=== PATIENT | male | born 1985 | race American Indian/Alaskan Native ===

== ENCOUNTER 2016-08-29 09:31 | Day surgery (SDC) | payer MEDICAID ==
[2016-08-24 10:12] VITALS: BMI 26.1
[2016-08-29 10:18] VITALS: O2SAT 100
[2016-08-29] MEDS ORDERED: Midazolam 2 MG/2 ML VIAL ONE (11:47)
[2016-08-29] MEDS ORDERED: Propofol 10 mg/ml Inj (20 ML) ONE (11:47)
[2016-08-29] MEDS ORDERED: Bacitracin 500 Units/gm Oint Foilpak UD ONE (11:52)
[2016-08-29] MEDS ORDERED: ceFAZolin IV 1 gm in Dextrose 50 ML IVPB ONE (11:52)
[2016-08-29] MEDS ORDERED: Lidocaine 1% Inj (20ml) ONE (11:52)
[2016-08-29] MEDS ORDERED: Bupivacaine HCl 0.5% PF (10 ml) Inj ONE (11:52)
[2016-08-29] MEDS ORDERED: Lactated Ringer's 1,000 ML IV ONE ×2 (12:00→14:00)
--- NOTE | 2016-08-29 12:50 | PCM.SURG1 ---
Surgeon's Initial Post Op Note - Surgeon's Notes Surgeon: Jessica Concrete Rod Buster: sunita Type of Anesthesia: General LMA Anesthesia Administered By: staff Pre-Operative Diagnosis: phimosis Operative Findings: same Post-Operative Diagnosis: same Operation Performed: circumcison Specimen/Specimens Removed: foreskin Estimated Blood Loss: EBL {In ML}: 0 Blood Products Given: N/A Drains Used: No Drains Post-Op Condition: Good Date of Surgery/Procedure: 08/29/16 Time of Surgery/Procedure: 12:50
[2016-08-29] MEDS ORDERED: HYDROmorphone 0.5 mg/0.5 ml ISec IVP PRN (13:02)
[2016-08-29 13:27] VITALS: RESP 14
[2016-08-29 15:14] VITALS: TEMP 98
[2016-08-29 15:17] VITALS: BP 132/76; PULSE 68
--- NOTE | 2016-09-19 16:51 | OP ---
PROCEDURE DATE: 08/29/2016 PREOPERATIVE DIAGNOSIS: Phimosis. POSTOPERATIVE DIAGNOSIS: Phimosis. PROCEDURE: Circumcision. PROCEDURE IN DETAIL: As follows: Prior to the procedure, a detailed informed consent was obtained f rom the patient. The other ways of managing phimosis with balanitis were discussed with the patient. He was brought into the room and draped and prepped in the usual manner. A timeout was taken accor ding to the rules and regulations of [facility] and the circumcision begun by first marking the exterior and interior of the foreskin in the location of the incisions, which were both approximately 1 cm proximal to the sulcus coronaries. The two incisions were then connected with blunt and sharp dissection in a sleeve technique. Once the foreskin had been amputated, the cut areas were inspected for bleeding and bleeding vessels were fulgurated with the Bovie using a pinpoint electrode. The pa tient tolerated this well. The cut edges were then approximated with 3-0 chromic suture in a discont inuous fashion using a U stitch to reconstitute the frenulum. The patient tolerated this very well. There was no bleeding. The base of the penis was then infiltrated with 0.5% Marcaine Xylocaine solu tion and the dry sterile dressing was placed on the penis. The patient was given detailed postoperat odette instructions and a followup appointment in our office in one week. Theodore Lopez MD cc: [phone] TT: 09/19/2016 16:51:20
== END 2016-08-29 15:15 | disposition home or self-care (01) ==
LOC: C.SDS 09:31
PROVIDERS: ATTEND Urology
DX: N47.1 Phimosis (principal)

== ENCOUNTER 2016-09-23 00:39 | Emergency (ER) | payer MEDICAID ==
[2016-09-23 00:39] VITALS: BMI 26.1
[2016-09-23 00:54] VITALS: BP 122/80; PULSE 70; TEMP 98.4; O2SAT 99
--- NOTE | 2016-09-23 01:11 | C.PDOC ---
History Of Present Illness 31 year old male with a history of gastritis complains of nasal congestion for the past week. Patient reports frontal sinus headache and was seen by Dr. Em and was prescribed steroids, but reports upset stomach from taking medication and stopped 2 days ago. Patient continues to have nasal congestion and pressure to forehead, worsened with certain head movement. Denies fever, chills, epistaxis, cough, SOB, Dizziness, nausea, vomiting, diarrhea, or any other complaints. Time Seen by Provider: 09/23/16 00:55 Chief Complaint (Nursing): ENT Problem History Per: Patient History/Exam Limitations: None Onset/Duration Of Symptoms: Days Current Symptoms Are (Timing): Still Present Severity: Mild Past Medical History Reviewed: Historical Data, Nursing Documentation, Vital Signs Vital Signs: Last Vital Signs Temp 98.4 F 09/23/16 00:45 Pulse 70 09/23/16 00:45 Resp 20 09/23/16 01:53 BP 122/80 09/23/16 00:45 Pulse Ox 99 09/23/16 02:17 - Medical History PMH: Gastritis Surgical History: Endoscopy Family History: States: Unknown Family Hx - Social History Hx Alcohol Use: Yes Hx Substance Use: No - Immunization History Hx Tetanus Toxoid Vaccination: No Hx Influenza Vaccination: No Hx Pneumococcal Vaccination: No Review Of Systems Constitutional: Negative for: Fever, Chills ENT: Positive for: Nose Congestion. Negative for: Ear Pain, Throat Pain Respiratory: Negative for: Cough, Shortness of Breath Gastrointestinal: Negative for: Nausea, Vomiting, Diarrhea Musculoskeletal: Negative for: Neck Pain Skin: Negative for: Rash Neurological: Positive for: Headache (Frontal sinus). Negative for: Weakness, Numbness, Dizziness Physical Exam - Physical Exam Appears: Non-toxic, No Acute Distress Skin: Warm, Dry Head: Atraumatic, Normacephalic Eye(s): bilateral: Normal Inspection, PERRL, EOMI Ear(s): Bilateral: Normal Nose: No Flaring, No Epistaxis, No Septal Hematoma, Other (Nasal congestion) Oral Mucosa: Moist Throat: Normal, No Erythema, No Exudate Neck: Normal ROM Chest: Symmetrical Cardiovascular: Rhythm Regular, No Murmur Respiratory: Normal Breath Sounds, No Wheezing Extremity: Bilateral: Atraumatic, Normal ROM Neurological/Psych: Oriented x3, Normal Speech, Other (No focal deficit) ED Course And Treatment O2 Sat by Pulse Oximetry: 99 (Room air) Pulse Ox Interpretation: Normal Medical Decision Making Medical Decision Makin y.o male with nasal congestion and frontal sinus headache. Sudafed PO given in ED. Advise patient to take decongestants, use steam or neti-pot and follow up with PMD or ENT 1-2 days. Disposition Counseled Patient/Family Regarding: Diagnosis, Need For Followup, Rx Given - Disposition Referrals: Uday Em MD [Primary Care Provider] - Uriel Macdonald MD [Staff Provider] - Disposition: HOME/ ROUTINE Disposition Time: 01:10 Condition: STABLE Additional Instructions: Try steam or neti-pot to help with nasal congestion Use nasal spray daily Take decongestant every 6-8 hours as needed Follow up with primary doctor and ENT Prescriptions: Fluticasone Propionate [Flonase] 1 spray NS DAILY #1 bottle Pseudoephedrine HCl [Sudafed] 30 mg PO Q6 #24 tablet Instructions: Nasal Rinse (ED), Sinusitis (ED) - POA Present On Arrival: None - Clinical Impression Clinical Impression: Sinusitis, Head congestion - Scribe Statement The provider has reviewed the documentation as recorded by the Scribe Dickson jules All medical record entries made by the Scribe were at my direction and personally dictated by me. I have reviewed the chart and agree that the record accurately reflects my personal performance of the history, physical exam, medical decision making, and the department course for this patient. I have also personally directed, reviewed, and agree with the discharge instructions and disposition.
[2016-09-23 01:54] VITALS: RESP 20
== END 2016-09-23 01:53 | disposition home or self-care (01) ==
LOC: C.ER 00:39 → SUPCPDRO 00:39 → C.ER 01:53
DX: J32.9 Chronic sinusitis, unspecified (principal)

== ENCOUNTER 2016-10-01 11:18 | Observation (INO) | payer MEDICAID ==
[2016-10-01 11:21] VITALS: BMI 24.0
[2016-10-01] MEDS ORDERED: Sodium Chloride 0.9% 1,000 ML IV ONE (11:36)
[2016-10-01] MEDS ORDERED: Iohexol 240 (50 ml) PO ONE (11:49)
[2016-10-01] MEDS ORDERED: Iohexol 240 (50 ml) ONE (12:04)
[2016-10-01] MEDS ORDERED: Sodium Chloride 0.9% 1,000 ML ONE (12:04)
[2016-10-01 12:06] LABS: BASO # 0.1 K/uL (0.0-0.2); BASO % 0.5 % (0.0-2.0); EOS % 0.1 % (0.0-4.0); HEMATOCRIT 40.8 % (35.0-51.0); LYMPH # 0.8 K/uL (1.0-4.3); LYMPH % 6.3 % (20.0-40.0); MEAN CELL VOLUME 92.9 fL (80.0-94.0); MEAN CORPUSCULAR HEMOGLOBIN 30.9 pg (27.0-31.0); MEAN CORPUSCULAR HGB CONC 33.2 g/dL (33.0-37.0); MEAN PLATELET VOLUME 7.7 fL (7.2-11.7); MONO # 0.7 K/uL (0.0-0.8); MONO % 5.4 % (0.0-10.0); PLATELET COUNT 236 K/uL (130-400); WHITE BLOOD COUNT 12.4 K/uL (4.8-10.8)
[2016-10-01 12:18] LABS: CHLORIDE 98 mmol/L (98-107)
[2016-10-01 12:19] LABS: POTASSIUM 3.6 mmol/L (3.6-5.2); SODIUM 138 mmol/L (132-148)
[2016-10-01 12:21] LABS: ALB/GLOB RATIO 1.3 (1.0-2.1); ALKALINE PHOSPHATASE 102 U/L (38-126); AST/SGOT 23 U/L (17-59); BILIRUBIN,TOTAL 1.2 mg/dL (0.2-1.3); BLOOD UREA NITROGEN 12 mg/dL (9-20); CARBON DIOXIDE 27 mmol/L (22-30); GFR AFRICAN-AMERICAN > 60; TOTAL PROTEIN 7.9 g/dL (6.3-8.3)
[2016-10-01 12:22] LABS: ALT/SGPT 17 U/L (21-72); CALCIUM 9.4 mg/dl (8.6-10.4); GLUCOSE,RANDOM 126 mg/dL (75-110)
[2016-10-01 12:32] LABS: NEUTROPHIL 88 % (50-75); TOTAL CELLS COUNTED 100
--- NOTE | 2016-10-01 13:57 | C.PDOC ---
History Of Present Illness The patient, a 31 y/o male, presents to the ED for evaluation of "rectal pressure" which began today. Patient also notes a very small amount of bleeding consisting of bright red blood. Patient denies eating anything aside from his normal diet and states he has never experienced such symptoms in the past. Patient denies fever, chills, chest pain, shortness of breath, vomiting, sick contacts or recent travel. Chief Complaint (Nursing): Abnormal Skin Integrity History Per: Patient History/Exam Limitations: no limitations Onset/Duration Of Symptoms: Hrs Current Symptoms Are (Timing): Still Present Recent travel outside of the [place]: No Additional History Per: Patient Past Medical History Reviewed: Historical Data, Nursing Documentation, Vital Signs Vital Signs: Last Vital Signs Temp 98.0 F 10/01/16 18:35 Pulse 71 10/01/16 18:35 Resp 18 10/01/16 18:35 BP 126/80 10/01/16 18:35 Pulse Ox 100 10/01/16 18:35 - Medical History PMH: Gastritis Denies: Chronic Kidney Disease Surgical History: Endoscopy Family History: States: Unknown Family Hx - Social History Hx Alcohol Use: Yes Hx Substance Use: No - Immunization History Hx Tetanus Toxoid Vaccination: No Hx Influenza Vaccination: No Hx Pneumococcal Vaccination: No Review Of Systems Except As Marked, All Systems Reviewed And Found Negative. Constitutional: Negative for: Fever, Chills Cardiovascular: Negative for: Chest Pain Respiratory: Negative for: Shortness of Breath Gastrointestinal: Positive for: Other (+rectal pressure with small amount of bright red blood noted ). Negative for: Vomiting Physical Exam - Physical Exam Appears: Non-toxic, No Acute Distress Skin: Normal Color, Warm, Dry Head: Atraumatic, Normacephalic Eye(s): bilateral: Normal Inspection, EOMI Oral Mucosa: Moist Neck: Supple Chest: Symmetrical, No Deformity, No Tenderness Cardiovascular: Rhythm Regular, No Murmur Respiratory: Normal Breath Sounds, No Rales, No Rhonchi, No Wheezing Gastrointestinal/Abdominal: Tenderness (to bilateral lower quadrants, L greater than R ), No Guarding, No Rebound Back: Normal Inspection, No Vertebral Tenderness, No Paraspinal Tenderness Extremity: Normal ROM, Capillary Refill (less than 2 seconds) Neurological/Psych: Oriented x3, Normal Speech, Normal Cognition Gait: Steady ED Course And Treatment - Laboratory Results Result Diagrams: 10/01/16 12:01 10/01/16 12:01 O2 Sat by Pulse Oximetry: 97 (on RA) Pulse Ox Interpretation: Normal - CT Scan/US CT A/P Other Rad Studies (CT/US): Interpreted By Me, Read By Radiologist, Radiology Report Reviewed CT/US Interpretation: Accession No. : [id number]. Patient Name / ID : MARLENA Kay / [id number]. Exam Date : 10/01/2016 15:14:30 ( Approved ). Study Comment : Sex / Age : M / 31Y. Creator : Estella Hartley. Dictator : Estella Hartley. Trimmer Press Clippings : Bilingual Recruiter : Estella Hartley. Approver2 : Report Date : 10/01/2016 15:55:06. My Comment : . PROCEDURE: CT Abdomen and Pelvis with contrast. HISTORY: lower abdominal pain (left>right). COMPARISON: None. TECHNIQUE: Axial and reformatted coronal and sagittal CT images of the abdomen and pelvis were obtained after IV and oral contrast administration. Contrast dose: Radiation dose: Total exam DLP = mGy-cm. FINDINGS: LOWER THORAX: Unremarkable. LIVER: Unremarkable. No gross lesion or ductal dilatation. GALLBLADDER AND BILE DUCTS: Unremarkable. PANCREAS: Unremarkable. No gross lesion or ductal dilatation. SPLEEN: Unremarkable. ADRENALS: Unremarkable. No mass. KIDNEYS AND URETERS: Unremarkable. No hydronephrosis. No solid mass. VASCULATURE: Unremarkable. No aortic aneurysm. BOWEL: Mildly dilated small and large bowel loops. Mild small bowel wall thickening. Mild constipation seen in the right colon. APPENDIX: The appendix is enlarged demonstrate thick wall measures up to 11 millimeter in the transverse diameter. The possibility of acute appendicitis cannot be totally excluded. PERITONEUM: Unremarkable. No free fluid. No free air. LYMPH NODES: Unremarkable. No enlarged lymph nodes. BLADDER: Unremarkable. REPRODUCTIVE : Unremarkable. BONES: No acute fracture. OTHER FINDINGS: None. IMPRESSION : Mildly dilated small and large bowel loops and mild wall thickening of the small bowel wall. Mildly enlarged thick wall appendix. The possibility of an early appendicitis is not excluded. If clinically warranted delayed images of the lower abdomen may be obtained for further assessment. Otherwise no evidence of acute pathology in the abdomen and pelvis. Progress Note: labs and CT A/P ordered and reviewed. Patient received Morphine IV, Pepcid IV, Zofran IV, and IV Fluids. Case discussed with surgical consult. ED OBSERVATION Date of observation admission: 10/01/16 Time of observation admission: 12:30 - Observation admission statement Patient is being placed in observation because:: abdominal pain - Goals of Observation Goals of observation are:: diagnosis and resolution of symptoms - Progress Note Progress Note: 10/01/16 13:00 Patient is resting comfortably, vitals remain stable. 10/01/16 16:47 awaiting surgical consult. patient remains stable. Disposition - Disposition Disposition Time: 19:00 Condition: STABLE - Clinical Impression Clinical Impression: Abdominal pain, Rectal hemorrhage - Scribe Statement The provider has reviewed the documentation as recorded by the Scribe (Winter Johnson) Provider Attestation: All medical record entries made by the Scribe were at my direction and personally dictated by me. I have reviewed the chart and agree that the record accurately reflects my personal performance of the history, physical exam, medical decision making, and the department course for this patient. I have also personally directed, reviewed, and agree with the discharge instructions and disposition.
[2016-10-01] MEDS ORDERED: Iodixanol 320 MG/ML 100 ML BOTTLE IV ONE (14:47)
--- NOTE | 2016-10-01 15:56 | CT ---
PROCEDURE: CT Abdomen and Pelvis with contrast HISTORY: lower abdominal pain (left>right) COMPARISON: None. TECHNIQUE: Axial and reformatted coronal and sagittal CT images of the abdomen and pelvis were obtained after IV and oral contrast administration. Contrast dose: Radiation dose: Total exam DLP = mGy-cm. FINDINGS: LOWER THORAX: Unremarkable. LIVER: Unremarkable. No gross lesion or ductal dilatation. GALLBLADDER AND BILE DUCTS: Unremarkable. PANCREAS: Unremarkable. No gross lesion or ductal dilatation. SPLEEN: Unremarkable. ADRENALS: Unremarkable. No mass. KIDNEYS AND URETERS: Unremarkable. No hydronephrosis. No solid mass. VASCULATURE: Unremarkable. No aortic aneurysm. BOWEL: Mildly dilated small and large bowel loops. Mild small bowel wall thickening. Mild constipation seen in the right colon. APPENDIX: The appendix is enlarged demonstrate thick wall measures up to 11 millimeter in the transverse diameter. The possibility of acute appendicitis cannot be totally excluded. PERITONEUM: Unremarkable. No free fluid. No free air. LYMPH NODES: Unremarkable. No enlarged lymph nodes. BLADDER: Unremarkable. REPRODUCTIVE: Unremarkable. BONES: No acute fracture. OTHER FINDINGS: None. IMPRESSION: Mildly dilated small and large bowel loops and mild wall thickening of the small bowel wall. Mildly enlarged thick wall appendix. The possibility of an early appendicitis is not excluded. If clinically warranted delayed images of the lower abdomen may be obtained for further assessment. Otherwise no evidence of acute pathology in the abdomen and pelvis.
[2016-10-01] MEDS ORDERED: Dextrose 5%-0.225% NS 1,000 ML IV ONE (20:42)
--- NOTE | 2016-10-01 20:44 | CP.PCM.HP ---
History of Present Illness - History of Present Illness History of Present Illness: General Surgery H&P Re: R/O appendicitis HPI: 31M presented to ED c/o rectal pressure and low abdominal pain that began today. Abd pain in LLQ and suprapubic area. He has never had this pain before. Reports several BMs with scant BRBPR. Pt reports 1 BM every 2-3 days since he began pepcid use for gastritis. Denies F/C, N/V, MCGILL, chest pain, SOB. PMH: Gastritis PSH: Circumcision SH: + tobacco use, social EtOH, No drug use All: NKDA Meds: Pepcid, Sudafed Present on Admission - Present on Admission Any Indicators Present on Admission: No Review of Systems - Review of Systems All systems: reviewed and no additional remarkable complaints except (as per HPI ) Past Patient History - Infectious Disease Hx of Infectious Diseases: None - Past Medical History & Family History Past Medical History?: Yes - Past Social History Smoking Status: Light Smoker < 10 Cigarettes Daily - CARDIAC Hx Cardiac Disorders: No - PULMONARY Hx Respiratory Disorders: No - NEUROLOGICAL Hx Neurological Disorder: No - HEENT Hx Sinusitis: Yes - RENAL Hx Chronic Kidney Disease: No - ENDOCRINE/METABOLIC Hx Endocrine Disorders: No - HEMATOLOGICAL/ONCOLOGICAL Hx Blood Disorders: No - INTEGUMENTARY Hx Dermatological Problems: No - MUSCULOSKELETAL/RHEUMATOLOGICAL Hx Musculoskeletal Disorders: No - GASTROINTESTINAL Hx Gastritis: Yes - GENITOURINARY/GYNECOLOGICAL Hx Genitourinary Disorders: Yes (phimosis) - PSYCHIATRIC Hx Substance Use: No - SURGICAL HISTORY Other/Comment: Circumcission - 08/29/16 - ANESTHESIA Hx Anesthesia: Yes Hx Anesthesia Reactions: No Hx Malignant Hyperthermia: No Meds Allergies/Adverse Reactions: Allergies Allergy/AdvReac Type Severity Reaction Status Date / Time No Known Allergies Allergy Verified 10/01/16 11:20 Physical Exam - Constitutional Appears: Non-toxic, No Acute Distress - Head Exam Head Exam: ATRAUMATIC, NORMOCEPHALIC - Eye Exam Eye Exam: EOMI. absent: Scleral icterus - ENT Exam ENT Exam: Mucous Membranes Dry Additional comments: trachea midline - Respiratory Exam Respiratory Exam: NORMAL BREATHING PATTERN. absent: Respiratory Distress - Cardiovascular Exam Cardiovascular Exam: RRR, +S1, +S2 - GI/Abdominal Exam GI & Abdominal Exam: Soft, Tenderness (in LLQ and suprapubic area). absent: Distended, Firm, Guarding, Rebound, Rigid - Rectal Exam Rectal Exam: NORMAL INSPECTION. absent: Bloody Stool, Hemorrhoids, Fecal Impaction Additional comments: prostate normal - Extremities Exam Extremities exam: Positive for: pedal pulses present. Negative for: pedal edema - Back Exam Back exam: absent: CVA tenderness (L), CVA tenderness (R) - Neurological Exam Neurological exam: Alert, Oriented x3 - Psychiatric Exam Psychiatric exam: Normal Affect, Normal Mood - Skin Skin Exam: Dry, Warm Results - Vital Signs Recent Vital Signs: Last Vital Signs Temp 98.0 F 10/01/16 18:35 Pulse 71 10/01/16 18:35 Resp 18 10/01/16 18:35 BP 126/80 10/01/16 18:35 Pulse Ox 97 10/01/16 18:58 - Labs Result Diagrams: 10/01/16 12:01 10/01/16 12:01 - Imaging and Cardiology CT scan - abdomen Status: Image reviewed by me, Report reviewed by me Assessment & Plan - Assessment and Plan (Free Text) Assessment: 31M with colitis vs constipation vs early appendicitis Plan: IVF Abx NPO Analgesia Monitor abd pain D/W Dr. Qamar Scanlon PGY3
[2016-10-01] MEDS: Dextrose 5%/0.45% NS 1,000 ML IV SCH (20:45)
[2016-10-01] MEDS: Piperacill/Tazo 3.375gm in Dex 50 ML IVPB SCH ×2 (20:48→22:17)
[2016-10-02] MEDS: Piperacill/Tazo 3.375gm in Dex 50 ML IVPB SCH ×2 (02:30→08:47)
[2016-10-02 07:45] LABS: BASO % 0.5 % (0.0-2.0); EOS % 0.7 % (0.0-4.0); LYMPH # 2.2 K/uL (1.0-4.3); MEAN CELL VOLUME 93.2 fL (80.0-94.0); MEAN CORPUSCULAR HEMOGLOBIN 30.8 pg (27.0-31.0); MEAN CORPUSCULAR HGB CONC 33.1 g/dL (33.0-37.0); MONO # 0.6 K/uL (0.0-0.8); MONO % 9.5 % (0.0-10.0); NRBC % 0.1 % (0.0-2.0); RED CELL DISTRIBUTION WIDTH 14.3 % (11.5-14.5); WHITE BLOOD COUNT 6.7 K/uL (4.8-10.8)
[2016-10-02 07:57] LABS: CHLORIDE 101 mmol/L (98-107)
[2016-10-02 07:58] LABS: POTASSIUM 3.2 mmol/L (3.6-5.2); SODIUM 139 mmol/L (132-148)
[2016-10-02 08:00] LABS: ALB/GLOB RATIO 1.4 (1.0-2.1); ALKALINE PHOSPHATASE 84 U/L (38-126); ALT/SGPT 18 U/L (21-72); AST/SGOT 19 U/L (17-59); BLOOD UREA NITROGEN 5 mg/dL (9-20); CARBON DIOXIDE 26 mmol/L (22-30); GFR AFRICAN-AMERICAN > 60; TOTAL PROTEIN 6.6 g/dL (6.3-8.3)
[2016-10-02 08:01] LABS: CALCIUM 8.7 mg/dl (8.6-10.4); GLUCOSE,RANDOM 107 mg/dL (75-110)
--- NOTE | 2016-10-02 08:59 | CP.PCM.PN ---
Subjective - Date & Time of Evaluation Date of Evaluation: 10/02/16 Time of Evaluation: 06:45 - Subjective Subjective: General Surgery Dr. Foote Pt S&E @bedside NAEO. no complaints. improved abd pain/pressure. (+) BM. denies F/C, N/V. NPO. Objective - Vital Signs/Intake and Output Vital Signs (last 24 hours): Temp Pulse Resp BP Pulse Ox 97.8 F 57 L 18 120/76 100 10/02/16 00:00 10/02/16 00:00 10/02/16 01:42 10/02/16 00:00 10/02/16 00:00 - Medications Medications: Current Medications Famotidine (Pepcid) 20 mg IVP DAILY [facility] Dextrose/Sodium Chloride (Dextrose 5%/0.45% Ns 1000 Ml) 1,000 mls @ 125 mls/hr IV .Q8H [facility] Last Admin: 10/01/16 20:45 Dose: 125 mls/hr Piperacillin Sod/Tazobactam Sod (Zosyn 3.375 Gm Iv Premix) 50 mls @ 100 mls/hr IVPB Q6H [facility] Last Admin: 10/02/16 08:47 Dose: 100 mls/hr Potassium Chloride (Potassium Chloride 10 Meq/100 Ml) 100 mls @ 100 mls/hr IVPB Q1H [facility] Stop: 10/02/16 11:59 Influenza Virus Vaccine (Afluria) 45 mcg IM .ONCE ONE Stop: 10/03/16 10:01 Morphine Sulfate (Morphine) 4 mg IVP Q4H PRN PRN Reason: Pain, moderate (4-7) Ondansetron HCl (Zofran Inj) 4 mg IVP Q4 PRN PRN Reason: Nausea/Vomiting Pneumococcal Polyvalent Vaccine (Pneumovax 23 Vaccine) 0.5 ml IM .ONCE ONE Stop: 10/03/16 10:01 - Labs Labs: 10/02/16 07:31 10/02/16 07:31 - Constitutional Appears: Non-toxic, No Acute Distress - Head Exam Head Exam: NORMAL INSPECTION - Eye Exam Eye Exam: Normal appearance - ENT Exam ENT Exam: Mucous Membranes Moist - Respiratory Exam Respiratory Exam: NORMAL BREATHING PATTERN. absent: Accessory Muscle Use, Respiratory Distress - GI/Abdominal Exam GI & Abdominal Exam: Soft. absent: Distended, Guarding, Tenderness, Rebound - Extremities Exam Extremities Exam: Normal Inspection - Neurological Exam Neurological Exam: Alert, Awake, Oriented x3 - Psychiatric Exam Psychiatric exam: Normal Affect, Normal Mood - Skin Skin Exam: Dry, Intact, Normal Color, Warm Assessment and Plan - Assessment and Plan (Free Text) Assessment: 31 y/o M w/ gastritis and likely enteritis vs constipation. - advance diet as tolerated - goal Regular - cont IVF, Abx - pain management - monitor abd - monitor bowel movements. Pt discussed w/ Dr. Qamar Goss DO PGY1
[2016-10-02 10:16] VITALS: BP 106/59; PULSE 74; RESP 20; TEMP 98.3; O2SAT 96
[2016-10-02] MEDS: Potassium Chloride 10 mEq 100 ML IVPB SCH ×3 (10:22→14:06)
--- NOTE | 2016-10-02 14:00 | CP.PCM.DIS ---
Provider - Provider Date of Admission: 10/01/16 12:30 Attending physician: Fransisco Foote MD Primary care physician: Dr. Foote (surgery) Consults: none Time Spent in preparation of Discharge (in minutes): 45 Diagnosis - Discharge Diagnosis (1) Abdominal pain Status: Acute Comment: see hospital course Hospital Course - Lab Results Lab Results: Most Recent Lab Values WBC 6.7 K/uL (4.8-10.8) 10/02/16 07:31 RBC 4.08 Mil/uL (4.40-5.90) L 10/02/16 07:31 Hgb 12.6 g/dL (12.0-18.0) 10/02/16 07:31 Hct 38.0 % (35.0-51.0) 10/02/16 07:31 MCV 93.2 fL (80.0-94.0) 10/02/16 07:31 MCH 30.8 pg (27.0-31.0) 10/02/16 07:31 MCHC 33.1 g/dL (33.0-37.0) 10/02/16 07:31 RDW 14.3 % (11.5-14.5) 10/02/16 07:31 Plt Count 229 K/uL (130-400) 10/02/16 07:31 MPV 8.0 fL (7.2-11.7) 10/02/16 07:31 Neut % (Auto) 56.3 % (50.0-75.0) 10/02/16 07:31 Lymph % (Auto) 33.0 % (20.0-40.0) 10/02/16 07:31 [place] % (Auto) 9.5 % (0.0-10.0) 10/02/16 07:31 Eos % (Auto) 0.7 % (0.0-4.0) 10/02/16 07:31 Baso % (Auto) 0.5 % (0.0-2.0) 10/02/16 07:31 Neut # 3.8 K/uL (1.8-7.0) 10/02/16 07:31 Lymph # 2.2 K/uL (1.0-4.3) 10/02/16 07:31 [place] # 0.6 K/uL (0.0-0.8) 10/02/16 07:31 Eos # 0.0 K/uL (0.0-0.7) 10/02/16 07:31 Baso # 0.0 K/uL (0.0-0.2) 10/02/16 07:31 Neutrophils % (Manual) 88 % (50-75) H 10/01/16 12:01 Band Neutrophils % 1 % (0-2) 10/01/16 12:01 Lymphocytes % (Manual) 7 % (20-40) L 10/01/16 12:01 Monocytes % (Manual) 4 % (0-10) 10/01/16 12:01 Platelet Estimate Normal (NORMAL) 10/01/16 12:01 RBC Morphology Normal 10/01/16 12:01 Sodium 139 mmol/L (132-148) 10/02/16 07:31 Potassium 3.2 mmol/L (3.6-5.2) L 10/02/16 07:31 Chloride 101 mmol/L (98-107) 10/02/16 07:31 Carbon Dioxide 26 mmol/L (22-30) 10/02/16 07:31 Anion Gap 16 (10-20) 10/02/16 07:31 BUN 5 mg/dL (9-20) L 10/02/16 07:31 Creatinine 0.9 MG/DL (0.8-1.5) 10/02/16 07:31 Est GFR ( Amer) > 60 10/02/16 07:31 Est GFR (Non-Af Amer) > 60 10/02/16 07:31 Random Glucose 107 mg/dL (75-110) 10/02/16 07:31 Calcium 8.7 mg/dl (8.6-10.4) 10/02/16 07:31 Total Bilirubin 2.0 mg/dL (0.2-1.3) H 10/02/16 07:31 AST 19 U/L (17-59) 10/02/16 07:31 ALT 18 U/L (21-72) L 10/02/16 07:31 Alkaline Phosphatase 84 U/L (38-126) 10/02/16 07:31 Total Protein 6.6 g/dL (6.3-8.3) 10/02/16 07:31 Albumin 3.9 g/dL (3.5-5.0) 10/02/16 07:31 Globulin 2.7 gm/dL (2.2-3.9) 10/02/16 07:31 Albumin/Globulin Ratio 1.4 (1.0-2.1) 10/02/16 07:31 Lipase 154 U/L (23-300) 10/01/16 12:01 - Hospital Course Hospital Course: On admission: 31M presented to ED c/o rectal pressure and low abdominal pain that began today. Abd pain in LLQ and suprapubic area. He has never had this pain before. Reports several BMs with scant BRBPR. Pt reports 1 BM every 2-3 days since he began pepcid use for gastritis. Denies F/C, N/V, MCGILL, chest pain, SOB. Hospital course: Pt admitted on 10/01/16 for abdominal pain. He was made NPO, started on Zosyn, Pepcid, IV fluids, and Morphine. CT A/P showed dilated bowel loops and mild wall thickening of small bowel, and mildly enlarged thick wall appendix, and large amount of stool. Pain resolved with bowel movement the next AM. He tolerated regular diet without discomfort. Pt was deemed clear for discharge by Dr. Foote. He was given prescription for colace, and told to buy OTC fiber supplement. Discharge Exam - Head Exam Head Exam: NORMAL INSPECTION - Eye Exam Eye Exam: EOMI, Normal appearance - ENT Exam ENT Exam: Mucous Membranes Moist - Respiratory Exam Respiratory Exam: NORMAL BREATHING PATTERN - Cardiovascular Exam Cardiovascular Exam: REGULAR RHYTHM, +S1, +S2 - GI/Abdominal Exam GI & Abdominal Exam: Normal Bowel Sounds, Soft. absent: Tenderness - Extremities Exam Extremities exam: normal inspection - Neurological Exam Neurological exam: Alert, Oriented x3 - Skin Skin Exam: Normal Color, Warm Discharge Plan - Discharge Medications Prescriptions: Docusate [Colace] 100 mg PO BID #28 cap - Follow Up Plan Condition: GOOD Disposition: HOME/ ROUTINE Instructions: Acute Abdominal Pain (DC), Acute Abdominal Pain (GEN) Additional Instructions: Pt stable for discharge per Dr. Foote He does NOT need to make an appointment to follow up with Dr. Foote. He has been prescribed Colace for his constipation. It has also been recommended he take a fiber supplement and drink plenty of water to avoid constipation reoccurrence in the future. He is free to resume his home medication for his sinusitis. If symptoms return he should go directly to the emergency department for evaluation. NEWLY PRESCRIBED MEDICATION: Colace 100mg PO BID Over the counter recommendation: fiber supplement of patients choice
[2016-10-02] MEDS: Dextrose 5%/0.45% NS 1,000 ML IV SCH (14:05)
[2016-10-03] MEDS ORDERED: Influenza Virus Vaccine 45 mcg/0.5 ml Syr IM ONE (10:00)
[2016-10-03] MEDS ORDERED: Pneumococcal 23-Valent Vaccine IM ONE (10:00)
== END 2016-10-02 16:34 | disposition home or self-care (01) ==
LOC: C.ER 11:18 → C.9OBSV 12:30 → C.9E 19:10 → C.3T 22:09
PROVIDERS: ADMIT Specialist; ATTEND Specialist
DX: K29.70 Gastritis, unspecified, without bleeding (principal); K62.5 Hemorrhage of anus and rectum; R10.9 Unspecified abdominal pain; N18.9 Chronic kidney disease, unspecified; F17.210 Nicotine dependence, cigarettes, uncomplicated
CPT/HCPCS: 36415; 74177; 80053; 83690; 85025; 96365; 96374; 99285; G0378; J2270; J2405; J2543; J3480; J7040; J7042; Q9966; Q9967

== ENCOUNTER 2016-10-07 17:23 | Emergency (ER) | payer MEDICAID ==
[2016-10-07 17:23] VITALS: BMI 24.0
--- NOTE | 2016-10-07 18:24 | C.PDOC ---
History Of Present Illness 31 y/o male whose PMH includes Gastritis, presents to the ED for evaluation of constipation which began around 1 week ago. Patient was evaluated in the ED for similar symptoms and underwent admission for Colitis and was given Rx for Colace. Patient states he stopped taking Colace because it exacerbated his gastritis and caused heartburn. Patient states he was evaluated by his PMD, who prescribed enema. Patient has been taking the enema as prescribed and states his last normal bowel movement was around 2 days ago. Patient reports slight nausea but otherwise denies fever, chills, vomiting, rectal pain, bloody stools. Time Seen by Provider: 10/07/16 17:50 Chief Complaint (Nursing): GI Problem History Per: Patient History/Exam Limitations: no limitations Onset/Duration Of Symptoms: Days Current Symptoms Are (Timing): Still Present Quality Of Discomfort: denies: "Pain" Associated Symptoms: Nausea, Constipation. denies: Fever, Diarrhea Exacerbating Factors: None Alleviating Factors: None Last Bowel Movement: Days Ago (2) Recent travel outside of the [place]: No Additional History Per: Patient Past Medical History Reviewed: Historical Data, Nursing Documentation, Vital Signs Vital Signs: Last Vital Signs Temp 98.1 F 10/07/16 18:55 Pulse 66 10/07/16 18:55 Resp 16 10/07/16 18:55 BP 114/64 10/07/16 18:55 Pulse Ox 98 10/07/16 18:55 - Medical History PMH: Gastritis Surgical History: Endoscopy Family History: States: Unknown Family Hx - Social History Hx Alcohol Use: Yes Hx Substance Use: No - Immunization History Hx Tetanus Toxoid Vaccination: No Hx Influenza Vaccination: No Hx Pneumococcal Vaccination: No Review Of Systems Except As Marked, All Systems Reviewed And Found Negative. Constitutional: Negative for: Fever, Chills Gastrointestinal: Positive for: Constipation. Negative for: Vomiting, Abdominal Pain Physical Exam - Physical Exam Appears: Non-toxic, No Acute Distress Skin: Normal Color, Warm, Dry Head: Atraumatic, Normacephalic Eye(s): bilateral: Normal Inspection, EOMI Oral Mucosa: Moist Neck: Normal ROM, Supple Chest: Symmetrical, No Deformity, No Tenderness Cardiovascular: Rhythm Regular, No Murmur Respiratory: Normal Breath Sounds, No Rales, No Rhonchi, No Wheezing Gastrointestinal/Abdominal: Bowel Sounds, Soft, No Tenderness, No Distention, No Guarding, No Rebound Back: Normal Inspection, No Vertebral Tenderness, No Paraspinal Tenderness Extremity: Normal ROM Neurological/Psych: Oriented x3, Normal Speech, Normal Cognition Gait: Steady ED Course And Treatment O2 Sat by Pulse Oximetry: 100 (on RA) Pulse Ox Interpretation: Normal Medical Decision Making Medical Decision Makin y.o with constipation Prior record reviewed: pt was admitted on 10/01/16 for abdominal pain. Treated with Zosyn, Pepcid, IV fluids, and Morphine. CT A/P showed dilated bowel loops and mild wall thickening of small bowel, and mildly enlarged thick wall appendix , and large amount of stool. Pt was deemed clear for discharge by Dr. Foote. Pt discharged 10/02/16 He was given prescription for colace, and told to buy OTC fiber supplement. Xray reviewed showing gas pattern and fecal retention. Patient remained well in no distress. Advise patient to use colace and drink more water and fiber to help with symptoms. Disposition Counseled Patient/Family Regarding: Need For Followup, Rx Given - Disposition Referrals: Augustus Em MD [Staff Provider] - Disposition: HOME/ ROUTINE Disposition Time: 18:55 Condition: STABLE Additional Instructions: Continue taking colace up to three times per day Eat more fiber and drink water Take simithecone for gas relief Take omeprazole for any gastritis pain Prescriptions: Simethicone [Mi-Acid Gas Relief] 80 mg PO QID PRN #30 ctb PRN Reason: Gi Distress Omeprazole 20 mg PO DAILY #30 capsule. Instructions: Constipation (DC), High Fiber Diet (ED) - POA Present On Arrival: None - Clinical Impression Clinical Impression: Constipation - PA / EPIC CUPID ANALYST / Resident Statement MD/DO has reviewed & agrees with the documentation as recorded. - Scribe Statement The provider has reviewed the documentation as recorded by the Scribe (Winter Johnson) All medical record entries made by the Scribe were at my direction and personally dictated by me. I have reviewed the chart and agree that the record accurately reflects my personal performance of the history, physical exam, medical decision making, and the department course for this patient. I have also personally directed, reviewed, and agree with the discharge instructions and disposition.
[2016-10-07 18:56] VITALS: BP 114/64; PULSE 66; RESP 16; TEMP 98.1
--- NOTE | 2016-10-08 08:15 | RAD ---
Abdomen single frontal view History: Constipation. Comparison: None available. Findings Moderate fecal retention. Few distended loops small in the left ben abdomen. Impression: Moderate fecal retention.
[2016-10-08 11:45] VITALS: O2SAT 100
== END 2016-10-07 18:56 | disposition home or self-care (01) ==
LOC: C.ER 17:23
DX: K59.00 Constipation, unspecified (principal)

== ENCOUNTER 2016-11-16 05:48 | Emergency (ER) | payer MEDICAID | END 2016-11-16 07:42 | disposition home or self-care (01) | LOC: C.ER 05:48 | DX: I88.9 Nonspecific lymphadenitis, unspecified (principal); K11.20 Sialoadenitis, unspecified ==

== ENCOUNTER 2016-12-05 20:33 | Emergency (ER) | payer MEDICAID ==
[2016-12-05 20:33] VITALS: BMI 24.0
[2016-12-05 21:18] VITALS: BP 119/70
[2016-12-05 21:31] LABS: BASO % 0.5 % (0.0-2.0); EOS # 0.1 K/uL (0.0-0.7); EOS % 0.9 % (0.0-4.0); LYMPH # 2.5 K/uL (1.0-4.3); MEAN CORPUSCULAR HEMOGLOBIN 31.6 pg (27.0-31.0); MEAN CORPUSCULAR HGB CONC 34.4 g/dL (33.0-37.0); MEAN PLATELET VOLUME 8.2 fL (7.2-11.7); MONO # 0.7 K/uL (0.0-0.8); MONO % 8.8 % (0.0-10.0); WHITE BLOOD COUNT 8.4 K/uL (4.8-10.8)
[2016-12-05 21:39] LABS: CHLORIDE 99 mmol/L (98-107); POTASSIUM 3.9 mmol/L (3.6-5.2); SODIUM 138 mmol/L (132-148)
[2016-12-05 21:41] LABS: GFR AFRICAN-AMERICAN > 60
[2016-12-05 21:42] LABS: ALB/GLOB RATIO 1.3 (1.0-2.1); ALKALINE PHOSPHATASE 113 U/L (38-126); ALT/SGPT 11 U/L (21-72); AST/SGOT 21 U/L (17-59); BLOOD UREA NITROGEN 20 mg/dL (9-20); CALCIUM 9.1 mg/dl (8.6-10.4); CARBON DIOXIDE 29 mmol/L (22-30); GLUCOSE,RANDOM 88 mg/dL (75-110)
--- NOTE | 2016-12-05 22:44 | C.PDOC ---
History Of Present Illness 31 year old patient presents to the ED complaining of an intermittent sensation of chest tightness for the past 2 months. Patient also complains of shortness of breath for the past week. He notes he becomes short of breath upon exertion. Patient admits to smoking less cigarettes now. Patient denies history of asthma , medical problems, family history of blood clots or heart disease, fever, cough or palpitations. Time Seen by Provider: 12/05/16 21:00 Chief Complaint (Nursing): Shortness Of Breath History Per: Patient History/Exam Limitations: no limitations Onset/Duration Of Symptoms: Intermittent Episodes (2 months), Worse Since (past week) Current Symptoms Are (Timing): Still Present Quality: Tightness, "Pain" Severity: Mild Pain Scale Rating Of: 3 Past Medical History Reviewed: Historical Data, Nursing Documentation, Vital Signs Vital Signs: Last Vital Signs Temp 97.6 F 12/05/16 20:38 Pulse 64 12/05/16 21:11 Resp 14 12/05/16 21:11 BP 119/70 12/05/16 21:11 Pulse Ox 99 12/05/16 22:51 - Medical History PMH: Gastritis Surgical History: Endoscopy Family History: States: No Known Family Hx - Social History Hx Alcohol Use: Yes Hx Substance Use: No - Immunization History Hx Tetanus Toxoid Vaccination: No Hx Influenza Vaccination: No Hx Pneumococcal Vaccination: Yes Review Of Systems Except As Marked, All Systems Reviewed And Found Negative. Cardiovascular: Positive for: Other (chest tightness). Negative for: Palpitations Respiratory: Positive for: Shortness of Breath. Negative for: Cough Physical Exam - Physical Exam Appears: Non-toxic, No Acute Distress Skin: Warm, Dry Head: Atraumatic, Normacephalic Neck: Normal ROM, Supple Chest: Symmetrical, No Tenderness Cardiovascular: Rhythm Regular Respiratory: Normal Breath Sounds, No Accessory Muscle Use, No Rales, No Rhonchi , No Wheezing Gastrointestinal/Abdominal: Soft, No Tenderness Back: Normal Inspection Extremity: Normal ROM, No Tenderness, No Swelling Neurological/Psych: Oriented x3, Normal Speech, Normal Cognition Gait: Steady ED Course And Treatment - Laboratory Results Result Diagrams: 12/05/16 21:27 12/05/16 21:27 ECG: Interpreted By Me, Viewed By Me ECG Rhythm: Sinus Rhythm Interpretation Of ECG: Normal axis. Early repolarization in V3, V4, V5, and V6. No acute ST-T wave changes. Rate From EC (bpm) O2 Sat by Pulse Oximetry: 99 (room air) Pulse Ox Interpretation: Normal Progress Note: EKG was done. Chest x-ray was taken. Labs were sent. Disposition Counseled Patient/Family Regarding: Studies Performed, Diagnosis, Need For Followup, Rx Given - Disposition Referrals: Uday Em MD [Medical Doctor] - Disposition: HOME/ ROUTINE Disposition Time: 23:50 Condition: STABLE Additional Instructions: FOLLOW UP WITH YOUR DOCTOR TOMORROW SCHEDULED RETURN TO ER IF YOU HAVE WORSENING OR CONCERNING SYMPTOMS USE INHALER NEEDED Prescriptions: Albuterol HFA [Ventolin HFA 90 mcg/actuation (8 g)] 0.09 mg IH Q4 PRN #1 puff PRN Reason: Wheezing Forms: General Discharge Instructions Print Language: OCCITAN - POA Present On Arrival: None - Clinical Impression Clinical Impression: Chest tightness, Bronchospasm - Scribe Statement The provider has reviewed the documentation as recorded by the Roseyibmariam Johnson Provider Attestation: All medical record entries made by the Scribe were at my direction and personally dictated by me. I have reviewed the chart and agree that the record accurately reflects my personal performance of the history, physical exam, medical decision making, and the department course for this patient. I have also personally directed, reviewed, and agree with the discharge instructions and disposition.
[2016-12-05] MEDS ORDERED: Albuterol 0.083% Inhal Sol (2.5 mg/3 mL) UD IH STA (22:48)
[2016-12-05] MEDS ORDERED: Albuterol 0.083% Inhal Sol (2.5 mg/3 mL) UD ONE (23:03)
[2016-12-06 00:15] VITALS: PULSE 63; RESP 12; TEMP 98; O2SAT 98
--- NOTE | 2016-12-06 08:30 | RAD ---
PROCEDURE: CHEST RADIOGRAPH, 1 VIEW HISTORY: SOB COMPARISON: None available. FINDINGS: LUNGS: Mild venous congestion. Nodular densities at the lung bases may represent nipple shadows. PLEURA: No pneumothorax or pleural fluid seen. CARDIOVASCULAR: Normal. OSSEOUS STRUCTURES: No significant abnormalities. VISUALIZED UPPER ABDOMEN: Normal. OTHER FINDINGS: None. IMPRESSION: Mild venous congestion. Nodular densities at the lung bases may represent nipple shadows.
--- NOTE | 2016-12-07 12:20 | CARD ---
APPROVED REPORT EKG Measurement Heart [id number] CT [id number] <Conclusion> Normal sinus rhythm Minimal voltage criteria for LVH, may be normal variant Early repolarization Borderline ECG
== END 2016-12-06 00:15 | disposition home or self-care (01) ==
LOC: C.ER 20:33
DX: J98.01 Acute bronchospasm (principal); R07.89 Other chest pain; Z72.0 Tobacco use

== ENCOUNTER 2016-12-22 20:04 | Emergency (ER) | payer MEDICAID ==
[2016-12-22 20:05] VITALS: BMI 24.0
[2016-12-22 20:12] VITALS: BP 126/84; PULSE 86; RESP 17; TEMP 98; O2SAT 99
--- NOTE | 2016-12-22 21:06 | C.PDOC ---
Time Seen by Provider: 12/22/16 20:37 Chief Complaint (Nursing): Headache History Per: Patient Onset/Duration Of Symptoms: Days (months), Waxing/Waning, Persistent Current Symptoms Are (Timing): Still Present Location Of Pain: Sinus/es Associated Symptoms: Nasal Congestion Severity: Moderate Additional History Per: Prior Records Past Medical History Reviewed: Historical Data, Nursing Documentation, Vital Signs Vital Signs: Last Vital Signs Temp 98 F 12/22/16 20:08 Pulse 86 12/22/16 20:08 Resp 17 12/22/16 20:08 BP 126/84 12/22/16 20:08 Pulse Ox 99 12/22/16 20:08 - Medical History PMH: Gastritis Surgical History: Endoscopy Family History: States: Unknown Family Hx - Social History Hx Alcohol Use: Yes Hx Substance Use: No - Immunization History Hx Tetanus Toxoid Vaccination: No Hx Influenza Vaccination: No Hx Pneumococcal Vaccination: Yes Review Of Systems Except As Marked, All Systems Reviewed And Found Negative. Constitutional: Negative for: Fever Eyes: Negative for: Vision Change ENT: Positive for: Nose Congestion. Negative for: Ear Pain, Ear Discharge Respiratory: Negative for: Shortness of Breath, Hemoptysis Gastrointestinal: Negative for: Vomiting Musculoskeletal: Negative for: Neck Pain Skin: Negative for: Rash Neurological: Negative for: Weakness, Numbness, Incoordination, Change in Speech , Confusion, Seizures, Altered Mental Status Physical Exam - Physical Exam Appears: Non-toxic, No Acute Distress Skin: Normal Color, Warm, Dry, No Rash Head: Atraumatic, Normacephalic Eye(s): bilateral: Normal Inspection, PERRL, EOMI Ear(s): Bilateral: Normal Nose: Other (boggy tubernates) Oral Mucosa: Moist, No Drooling, No Trismus Throat: Normal Neck: Normal ROM, Supple Lymphatic: No Adenopathy Cardiovascular: Rhythm Regular Respiratory: Normal Breath Sounds, No Accessory Muscle Use Gastrointestinal/Abdominal: Soft, No Tenderness Extremity: Normal ROM Neurological/Psych: Oriented x3, Normal Speech, Normal Cognition, Normal Cranial Nerves, Normal Motor, Normal Sensation ED Course And Treatment O2 Sat by Pulse Oximetry: 99 Pulse Ox Interpretation: Normal Disposition Counseled Patient/Family Regarding: Studies Performed, Diagnosis, Need For Followup, Rx Given - Disposition Referrals: Uday Em MD [Primary Care Provider] - Konrad Cosme MD [Staff Provider] - Disposition: HOME/ ROUTINE Disposition Time: 21:06 Condition: STABLE Additional Instructions: Follow up with an ENT specialist for further evaluation and treatment. Return to the ER if you develop fever, vomiting, worsening of symptoms or if you have any other concerns. Prescriptions: Fluticasone Propionate [Flonase] 2 spr NS BID #1 bottle Loratadine [Claritin] 10 mg PO DAILY #30 tab Montelukast [Singulair] 10 mg PO DAILY #30 tab Instructions: Allergic Rhinitis (ED) - Clinical Impression Clinical Impression: Chronic rhinitis
== END 2016-12-22 21:17 | disposition home or self-care (01) ==
LOC: SUPCPDRO 20:04 → C.ER 20:04
DX: J31.0 Chronic rhinitis (principal); Z72.0 Tobacco use

== ENCOUNTER 2016-12-22 23:17 | Emergency (ER) | payer MEDICAID ==
[2016-12-22 23:17] VITALS: BMI 24.0
[2016-12-22 23:25] VITALS: TEMP 98.2
[2016-12-22 23:49] VITALS: RESP 14
[2016-12-22] MEDS ORDERED: Alum-Mag Hydrox-Simethicone Susp (30 mL) PO STA (23:51)
[2016-12-22] MEDS ORDERED: Aluminum Hydroxide/Magnesium Hydroxide Susp (30 mL) ONE (23:57)
--- NOTE | 2016-12-23 00:23 | C.PDOC ---
Time Seen by Provider: 12/22/16 23:41 Chief Complaint (Nursing): Chest Pain History Per: Patient Onset/Duration Of Symptoms: Other (tonight, after discharge from this ED) Current Symptoms Are (Timing): Still Present Severity: Moderate Quality: Sharp, "Pain" Associated Symptoms: Dyspnea. denies: Diaphoresis, Syncope Modifying Factors: Other Indicated Below Additional History Per: Prior Records Past Medical History Reviewed: Historical Data, Nursing Documentation, Vital Signs Vital Signs: Last Vital Signs Temp 98.2 F 12/22/16 23:21 Pulse 81 12/22/16 23:21 Resp 14 12/22/16 23:47 BP 115/78 12/22/16 23:21 Pulse Ox 100 12/23/16 00:24 - Medical History PMH: Gastritis Surgical History: Endoscopy Family History: States: Unknown Family Hx - Social History Hx Alcohol Use: Yes Hx Substance Use: No - Immunization History Hx Tetanus Toxoid Vaccination: No Hx Influenza Vaccination: No Hx Pneumococcal Vaccination: Yes Review Of Systems Except As Marked, All Systems Reviewed And Found Negative. Constitutional: Negative for: Fever, Weakness ENT: Positive for: Nose Congestion Cardiovascular: Positive for: Chest Pain. Negative for: Edema Respiratory: Positive for: Shortness of Breath. Negative for: Hemoptysis Gastrointestinal: Negative for: Vomiting Musculoskeletal: Negative for: Neck Pain, Leg Pain Neurological: Negative for: Weakness, Numbness, Seizures Psych: Positive for: Anxiety Physical Exam - Physical Exam Appears: Non-toxic, No Acute Distress Skin: Normal Color, Warm, Dry, No Rash Head: Atraumatic, Normacephalic Eye(s): bilateral: PERRL, EOMI Neck: Normal ROM, Supple Chest: Symmetrical, No Deformity, Tenderness, No Ecchymosis, No Subcutaneous Emphysema Cardiovascular: Rhythm Regular Respiratory: Normal Breath Sounds, No Accessory Muscle Use Gastrointestinal/Abdominal: Soft, No Tenderness Back: No CVA Tenderness Extremity: Normal ROM, No Pedal Edema, No Calf Tenderness Extremity: Bilateral: Normal Color And Temperature Pulses: Left Radial: Normal, Right Radial: Normal Neurological/Psych: Oriented x3, Normal Speech, Normal Motor, Normal Sensation ED Course And Treatment ECG: Interpreted By Me, Viewed By Me ECG Rhythm: Sinus Rhythm, Nonspecific Changes Interpretation Of ECG: Early repolarization Rate From EC O2 Sat by Pulse Oximetry: 100 Pulse Ox Interpretation: Normal - Radiology CXR: Interpreted by Me, Viewed By Me CXR Interpretation: Yes: No Acute Disease. No: Cardiomegaly Progress Note: Pt feels much better after meds. Reassessment Condition: Improved Medical Decision Making Medical Decision Making: PERC rule negative. Disposition Counseled Patient/Family Regarding: Studies Performed, Diagnosis, Need For Followup - Disposition Referrals: Uday Em MD [Primary Care Provider] - Disposition: HOME/ ROUTINE Disposition Time: 00:57 Condition: IMPROVED Additional Instructions: Follow up with your doctor. Return to the ER if you develop worsening of symptoms or if you have any other concerns. Instructions: Noncardiac Chest Pain (ED) - Clinical Impression Clinical Impression: Non-cardiac chest pain
[2016-12-23] MEDS ORDERED: Phenylephrine 1% Nasal Spray (15 ml) NAS STA (00:44)
[2016-12-23] MEDS ORDERED: Phenylephrine 1% Nasal Spray (15 ml) ONE (00:48)
[2016-12-23 01:13] VITALS: PULSE 70
[2016-12-23 01:14] VITALS: BP 110/70; O2SAT 98
--- NOTE | 2016-12-23 14:55 | RAD ---
HISTORY: SOB COMPARISON: 12/05/2016 TECHNIQUE: Chest PA and lateral FINDINGS: LUNGS: No active pulmonary disease. PLEURA: No significant pleural effusion identified. No pneumothorax apparent. CARDIOVASCULAR: Normal. OSSEOUS STRUCTURES: No significant abnormalities. VISUALIZED UPPER ABDOMEN: Normal. OTHER FINDINGS: None. IMPRESSION: No active disease.
== END 2016-12-23 01:14 | disposition home or self-care (01) ==
LOC: C.ER 23:17 → SUPCPDRO 23:17 → C.ER 12-23 01:14
DX: R07.89 Other chest pain (principal)
CPT/HCPCS: 71020; 96372; 99285; J1885

== ENCOUNTER 2017-08-15 22:20 | Emergency (ER) | payer MEDICAID ==
[2017-08-15 22:20] VITALS: BMI 24.0
[2017-08-15 22:27] VITALS: BP 130/84; PULSE 101; RESP 16; TEMP 98; O2SAT 100
--- NOTE | 2017-08-16 01:27 | CT ---
EXAM: CT Head Without Intravenous Contrast CLINICAL HISTORY: 32 years old, male; Pain; Headache TECHNIQUE: Axial computed tomography images of the head/brain without intravenous contrast. All CT scans at this facility use one or more dose reduction techniques, viz.: automated exposure control; ma/kV adjustment per patient size (including targeted exams where dose is matched to indication; i.e. head); or iterative reconstruction technique. 380 images are submitted. Coronal and sagittal reformatted images were created and reviewed. Axial reformatted images were created and reviewed. COMPARISON: No relevant prior studies available. FINDINGS: Brain: Unremarkable. No hemorrhage. No significant white matter disease. No edema. Ventricles: Unremarkable. No ventriculomegaly. Bones/joints: Unremarkable. No acute fracture. Soft tissues: Unremarkable. Sinuses: Unremarkable. No acute sinusitis. Mastoid air cells: Unremarkable. No mastoid effusion. IMPRESSION: No evidence of an acute intracranial hemorrhage, midline shift or mass effect is identified.
--- NOTE | 2017-08-16 01:37 | C.PDOC ---
History Of Present Illness The patient presents to the ED for evaluation of left-sided nasal pain which began 3 days ago. Describes it as "clogged". Patient also reports facial pressure and notes he has a history of similar symptoms intermittently for the past 3 years. He was evaluated by his PMD 3 days ago and was prescribed Augmentin and has found some improvement. Patient has been using nasal sprays without relief. He states he has seen a neurologist and underwent a MRI ( results unremarkable) and an EEG. Patient denies fever, visual changes, photophobia, n/v, rash,sore throat, or neck pain. Time Seen by Provider: 08/15/17 22:38 Chief Complaint (Nursing): ENT Problem History Per: Patient History/Exam Limitations: no limitations Onset/Duration Of Symptoms: Days (3), Intermittent Episodes Current Symptoms Are (Timing): Still Present Associated Symptoms: denies: Fever, Chills Ear Symptoms: Bilateral: None Additional History Per: Patient Past Medical History Reviewed: Historical Data, Nursing Documentation, Vital Signs Vital Signs: Last Vital Signs Temp 98.0 F 08/15/17 22:23 Pulse 101 H 08/15/17 22:23 Resp 16 08/15/17 22:23 BP 130/84 08/15/17 22:23 Pulse Ox 100 08/16/17 02:43 - Medical History PMH: Anxiety, Gastritis Denies: Chronic Kidney Disease Surgical History: Endoscopy Family History: States: Unknown Family Hx - Social History Hx Alcohol Use: Yes Hx Substance Use: No - Immunization History Hx Tetanus Toxoid Vaccination: No Hx Influenza Vaccination: No Hx Pneumococcal Vaccination: Yes Review Of Systems Constitutional: Negative for: Fever, Chills ENT: Positive for: Nose Pain (left-sided ), Other (facial pressure ). Negative for: Throat Pain Neurological: Negative for: Headache Physical Exam - Physical Exam Appears: Non-toxic, No Acute Distress Skin: Normal Color, Warm, Dry Head: Atraumatic, Normacephalic, Tenderness (frontal ) Eye(s): bilateral: Normal Inspection, EOMI Ear(s): Bilateral: Normal Nose: No Discharge, Other (swollen nasal turbinates ) Throat: Normal, No Erythema, No Exudate Neck: Normal ROM, Supple Chest: Symmetrical, No Deformity, No Tenderness Cardiovascular: Rhythm Regular Respiratory: Normal Breath Sounds, No Rales, No Rhonchi, No Wheezing Extremity: Normal ROM, Capillary Refill (less than 2 seconds ) Neurological/Psych: Oriented x3, Normal Speech, Normal Cognition, Normal Cranial Nerves (2-12 grossly intact, no focal deficits) Gait: Steady ED Course And Treatment O2 Sat by Pulse Oximetry: 100 (on RA ) Pulse Ox Interpretation: Normal - CT Scan/US CT Head Other Rad Studies (CT/US): Interpreted By Me, Read By Radiologist, Radiology Report Reviewed CT/US Interpretation: CT Scan. . . HEAD W/O CONTRAST Exam Date: 08/15/17. . This imaging exam was performed at [facility]. EXAM: CT Head Without Intravenous Contrast. . CLINICAL HISTORY: 32 years old, male; Pain; Headache. . TECHNIQUE: Axial computed tomography images of the head/brain without intravenous. contrast. All CT scans at this facility use one or more dose reduction. techniques, viz.: automated exposure control; ma/kV adjustment per patient size. (including targeted exams where dose is matched to indication; i.e. head); or. iterative reconstruction technique. 380 images are submitted. Coronal and sagittal reformatted images were created and reviewed. Axial reformatted images were created and reviewed. . COMPARISON: No relevant prior studies available. . FINDINGS: Brain: Unremarkable. No hemorrhage. No significant white matter disease. No edema. Ventricles: Unremarkable. No ventriculomegaly. Bones/joints: Unremarkable. No acute fracture. Soft tissues: Unremarkable. Sinuses: Unremarkable. No acute sinusitis. Mastoid air cells: Unremarkable. No mastoid effusion. . IMPRESSION: No evidence of an acute intracranial hemorrhage, midline shift or mass effect. is identified. Progress Note: CT Head ordered and reviewed. Reglan PO and Toradol IM administered. On reassessment, patient is resting comfortably, showing no signs of distress and reports an improvement in his symptoms. NO headache, no sob, no chest pain. Patient is advised to f/u with his ENT within 1-2 days for further evaluation and/or return to the ED if symptoms persist or worsen. Disposition - Disposition Referrals: Uriel Macdonald MD [Staff Provider] - Disposition: HOME/ ROUTINE Disposition Time: 01:37 Condition: STABLE Additional Instructions: You have acute sinusitis when there has been up to 4 weeks of cloudy or colored (not clear) drainage from the nose plus one or both of the following: a stuffy, congested, or blocked nose or (b) pain, pressure or fullness in the face, head, or around the eyes. Salt water nasal irrigation and/or nasal steroid sprays are the main treatments for the symptoms of sinusitis. Follow up with referral physician in 1-2 days without fail for further evaluation. Take medications as prescribed. Return to the emergency department at any time if symptoms persist or worsen. Prescriptions: Guaifen/Dextromethorphan/PE [Mucinex Fast-Max Congest-Cough] 1 each PO Q6 #20 tablet Oxymetazoline 0.05% [Afrin 0.05%] 1 spr NS Q12H #1 bottle Instructions: Sinusitis (ED) Forms: [employer] (Russian) - Clinical Impression Clinical Impression: Sinusitis - PA / INSTANT PRINTER OPERATOR / Resident Statement MD/DO has reviewed & agrees with the documentation as recorded. - Scribe Statement The provider has reviewed the documentation as recorded by the Scribe (Winter Johnson) All medical record entries made by the Scribe were at my direction and personally dictated by me. I have reviewed the chart and agree that the record accurately reflects my personal performance of the history, physical exam, medical decision making, and the department course for this patient. I have also personally directed, reviewed, and agree with the discharge instructions and disposition.
== END 2017-08-16 01:44 | disposition home or self-care (01) ==
LOC: C.ER 22:20
DX: J32.9 Chronic sinusitis, unspecified (principal)
CPT/HCPCS: 70450; 96372; 99282; J1885

== ENCOUNTER 2017-09-04 02:43 | Emergency (ER) | payer MEDICAID ==
[2017-09-04 02:43] VITALS: BMI 24.0
[2017-09-04 02:57] VITALS: TEMP 97.8; O2SAT 99
--- NOTE | 2017-09-04 03:15 | C.PDOC ---
History Of Present Illness 32 year old male presents to the ER with a complaint of sinus congestion for the past few weeks. Patient states he has been on augmentin with no relief. Denies fever or chills. Chief Complaint (Nursing): ENT Problem History Per: Patient History/Exam Limitations: None Onset/Duration Of Symptoms: Days Symptoms Have Been: Continuous Past Medical History Reviewed: Historical Data, Nursing Documentation, Vital Signs Vital Signs: Last Vital Signs Temp 97.8 F 09/04/17 02:45 Pulse 75 09/04/17 02:45 Resp 20 09/04/17 02:45 BP 148/82 09/04/17 02:45 Pulse Ox 99 09/04/17 03:18 - Medical History PMH: Anxiety, Gastritis Surgical History: Endoscopy Family History: States: Unknown Family Hx - Social History Hx Alcohol Use: Yes Hx Substance Use: No - Immunization History Hx Tetanus Toxoid Vaccination: No Hx Influenza Vaccination: No Hx Pneumococcal Vaccination: Yes Review Of Systems Constitutional: Negative for: Fever, Chills ENT: Positive for: Nose Congestion. Negative for: Throat Pain Respiratory: Negative for: Cough, Wheezing Physical Exam - Physical Exam Appears: Non-toxic, No Acute Distress Skin: Normal Color, Warm, Dry Head: Atraumatic, Normacephalic Eye(s): bilateral: Normal Inspection Ear(s): Bilateral: Normal Nose: Other (congestion) Oral Mucosa: Moist Throat: Normal, No Erythema, No Exudate Neck: Normal, Supple Chest: Symmetrical, No Tenderness Cardiovascular: Rhythm Regular Respiratory: Normal Breath Sounds, No Rales, No Rhonchi, No Wheezing Gastrointestinal/Abdominal: Soft, No Tenderness Neurological/Psych: Oriented x3, Normal Speech ED Course And Treatment O2 Sat by Pulse Oximetry: 99 (room air) Pulse Ox Interpretation: Normal Progress Note: Cipro and claritin administered. Disposition Counseled Patient/Family Regarding: Diagnosis - Disposition Referrals: [facility] at [facility] [Outside] Uriel Macdonald MD [Staff Provider] - Disposition: HOME/ ROUTINE Disposition Time: 03:13 Condition: STABLE Prescriptions: Ciprofloxacin HCl [Cipro] 250 mg PO BID #20 tablet Desloratadine/Pseudoephedrine [Clarinex-D 12 Hour Tablet] 1 each PO Q12 #20 tbmp.12hr Instructions: Sinusitis in Adults Forms: [employer] (South Sudanese) - POA Present On Arrival: None - Clinical Impression Clinical Impression: Chronic sinusitis - Scribe Statement The provider has reviewed the documentation as recorded by the Scribe Santo Lauren All medical record entries made by the Roseyibe were at my direction and personally dictated by me. I have reviewed the chart and agree that the record accurately reflects my personal performance of the history, physical exam, medical decision making, and the department course for this patient. I have also personally directed, reviewed, and agree with the discharge instructions and disposition.
[2017-09-04 03:30] VITALS: BP 140/80; PULSE 71; RESP 18
== END 2017-09-04 03:29 | disposition home or self-care (01) ==
LOC: C.ER 02:43
DX: J32.9 Chronic sinusitis, unspecified (principal)

== ENCOUNTER 2017-09-07 15:49 | Emergency (ER) | payer MEDICAID ==
[2017-09-07 15:49] VITALS: BMI 24.0
[2017-09-07 16:11] VITALS: RESP 20; TEMP 98.4; O2SAT 97
--- NOTE | 2017-09-07 17:30 | C.PDOC ---
History Of Present Illness 32-year-old male, presents to the emergency department for evaluation of chronic nasal congestion, patient states he is unable to breathe for the past month, states he has been diagnosed w possible sinusitis by ENT and was seen here in ED. Patient admits, completed abx, steroids, and antihistamines without improvement. Denies high fever, severe headache, dizziness, vertigo, earache or discharges, drooling, dysphaiga, dyspnea, neck pain, cough, CP, abd. pain, N/V/D , Ambulate to Ed for evaluation, not in any apparent distress. Time Seen by Provider: 09/07/17 16:34 Chief Complaint (Nursing): Cough, Cold, Congestion History Per: Patient History/Exam Limitations: no limitations Past Medical History Reviewed: Historical Data, Nursing Documentation, Vital Signs Vital Signs: Last Vital Signs Temp 98.4 F 09/07/17 16:10 Pulse 115 H 09/07/17 16:10 Resp 20 09/07/17 16:10 BP 122/83 09/07/17 16:10 Pulse Ox 97 09/07/17 17:38 - Medical History PMH: Anxiety, Gastritis Surgical History: Endoscopy Family History: States: No Known Family Hx - Social History Hx Alcohol Use: Yes Hx Substance Use: No - Immunization History Hx Tetanus Toxoid Vaccination: No Hx Influenza Vaccination: Yes (07/2017) Hx Pneumococcal Vaccination: No Review Of Systems Constitutional: Negative for: Fever, Chills ENT: Positive for: Nose Discharge, Nose Congestion Respiratory: Negative for: Cough, Shortness of Breath Gastrointestinal: Negative for: Nausea, Vomiting Physical Exam - Physical Exam Appears: Well, Non-toxic, No Acute Distress Skin: Normal Color, Warm, Dry, No Rash Head: Normacephalic Eye(s): bilateral: PERRL Ear(s): Bilateral: Normal Nose: No Flaring, No Deformity, Tenderness (Mild, paranasal), Other (B/L nasal congestion, edematous intranasal mucosa B/L) Oral Mucosa: Moist, No Drooling Tongue: Normal Appearing Lips: Normal Appearing Teeth: Normal Dentition Throat: No Erythema, No Drooling Neck: Trachea Midline, Supple Lymphatic: No Adenopathy Cardiovascular: Rhythm Regular, No Murmur Respiratory: No Decreased Breath Sounds, No Accessory Muscle Use, No Stridor, No Wheezing Gastrointestinal/Abdominal: Soft, No Tenderness Extremity: Normal ROM, No Deformity, No Swelling Neurological/Psych: Oriented x3, Normal Speech ED Course And Treatment O2 Sat by Pulse Oximetry: 97 (RA) Pulse Ox Interpretation: Normal - CT Scan/US CT head and sinuses Other Rad Studies (CT/US): Radiology Report Reviewed CT/US Interpretation: reator : Heather Hicks. Dictator : Anamika Lr MD. Support Associate : Hair Spinning Machine Operator : Anamika Lr MD. Approver2 : Report Date : 09/07/2017 17:37:33. My Comment : . PROCEDURE: CT HEAD WITHOUT CONTRAST. HISTORY: headache, dizziness. COMPARISON: Noncontrast head CT performed 08/16/17. TECHNIQUE: Axial computed tomography images were obtained through the head/brain without intravenous contrast. Radiation dose: Total exam DLP = 1052.24 mGy-cm. This CT exam was performed using one or more of the following dose reduction techniques: Automated exposure control, adjustment of the mA and/or kV according to patient size, and/or use of iterative reconstruction technique. FINDINGS: HEMORRHAGE: No intracranial hemorrhage. BRAIN: No mass effect or edema. The carranza-white matter differentiation appears intact. Please note that MRI with diffusion imaging is more sensitive in the detection of acute ischemic event. VENTRICLES: No hydrocephalus. CALVARIUM: Unremarkable. PARANASAL SINUSES: Unremarkable as visualized. No significant inflammatory changes. MASTOID AIR CELLS: Unremarkable as visualized. No inflammatory changes. OTHER FINDINGS: None. IMPRESSION: No acute intracranial pathology identified. Progress Note: On re-eval, pt is afebrile, hemodynamicaly stable. NOn-toxic. Tolerate Po well in ED. PulseOx 97% RA. neck: Supple, (-) meningeal sign. ENT : exam c/w chronic nasal congestion, mild paranasal tenderness. No edema, no erythema. Uvula midline, no edema. Lungs: CTA B/L, BS equal B/L. Neurologicaly intact. CT results review and appears normal, no evidenc eof acute sinusitis. results review and discussed with pt. Pt has clinical findings c/w chronic nasal congestion, paranasal congestion. Pt advised. ref. to f/u with PMD, ENT in 2-3 days for re-eval. Return to ED if any worsening or new changes. Disposition Counseled Patient/Family Regarding: Studies Performed, Diagnosis, Need For Followup - Disposition Referrals: Uday Em MD [Medical Doctor] - Uriel Macdonald MD [Staff Provider] - Disposition: HOME/ ROUTINE Disposition Time: 17:40 Condition: STABLE Instructions: Rhinoplasty, Chronic Sinusitis Forms: [employer] (Vietnamese) - Clinical Impression Clinical Impression: Nasal sinus congestion - Scribe Statement The provider has reviewed the documentation as recorded by the Scribe (Shantal Crowder) All medical record entries made by the Scribe were at my direction and personally dictated by me. I have reviewed the chart and agree that the record accurately reflects my personal performance of the history, physical exam, medical decision making, and the department course for this patient. I have also personally directed, reviewed, and agree with the discharge instructions and disposition.
--- NOTE | 2017-09-07 17:44 | CT ---
PROCEDURE: CT HEAD WITHOUT CONTRAST. HISTORY: headache, dizziness COMPARISON: Noncontrast head CT performed 08/16/17 TECHNIQUE: Axial computed tomography images were obtained through the head/brain without intravenous contrast. Radiation dose: Total exam DLP = 1052.24 mGy-cm. This CT exam was performed using one or more of the following dose reduction techniques: Automated exposure control, adjustment of the mA and/or kV according to patient size, and/or use of iterative reconstruction technique. FINDINGS: HEMORRHAGE: No intracranial hemorrhage. BRAIN: No mass effect or edema. The carranza-white matter differentiation appears intact. Please note that MRI with diffusion imaging is more sensitive in the detection of acute ischemic event. VENTRICLES: No hydrocephalus. CALVARIUM: Unremarkable. PARANASAL SINUSES: Unremarkable as visualized. No significant inflammatory changes. MASTOID AIR CELLS: Unremarkable as visualized. No inflammatory changes. OTHER FINDINGS: None. IMPRESSION: No acute intracranial pathology identified.
[2017-09-07 18:25] VITALS: BP 149/89; PULSE 100
--- NOTE | 2017-09-07 20:05 | CT ---
EXAM: CT Maxillofacial Sinuses Without Intravenous Contrast EXAM DATE/TIME: 09/07/2017 4:42 PM CLINICAL HISTORY: 32 years old, male; Signs and symptoms; Sinusitis; Type not specified; Additional info: Headache, sinus pressure and pain TECHNIQUE: Computed tomography images of the maxillofacial sinuses without intravenous contrast. All CT scans at this facility use one or more dose reduction techniques, viz.: automated exposure control; ma/kV adjustment per patient size (including targeted exams where dose is matched to indication; i.e. head); or iterative reconstruction technique. Coronal and sagittal reformatted images were created and reviewed. COMPARISON: There are no prior studies for comparison. FINDINGS: Sinuses: There is no acute sinusitis. Paranasal sinuses are well-aerated. There are no air-fluid levels. There is no mucoperiosteal thickening. Ostiomeatal complexes are patent bilaterally. Nasal cavity/septum: There is ankur bullosa formation on the right. There is deviation of the bony nasal septum to the left. Ears and mastoids: Middle ears and mastoids are unremarkable. Bones/joints: There are no acute osseous abnormalities. Soft tissues: There are no facial masses Orbits: Orbital contents are unremarkable. Dental: Streak artifact from dental fillings degrades image quality. Brain: No focal abnormalities are seen in visualized portion of the brain. Airway: There is no airway obstruction. IMPRESSION: No sinusitis
== END 2017-09-07 18:25 | disposition home or self-care (01) ==
LOC: C.ER 15:49
DX: R09.81 Nasal congestion (principal)

== ENCOUNTER 2017-09-23 21:26 | Emergency (ER) | payer MEDICAID ==
[2017-09-23 21:26] VITALS: BMI 24.0
[2017-09-23] MEDS ORDERED: Sucralfate 1 gm/10 ml Oral Susp UD PO STA (21:55)
[2017-09-23] MEDS ORDERED: Belladonna-Phenobarbital PO STA (21:56)
--- NOTE | 2017-09-23 21:58 | C.PDOC ---
History Of Present Illness 32 y/o male presents to the ED complaining of upper abdominal pain for the past few weeks. Patient has been taking antacids, Nexium and Pepcid, prescribed by primary doctor with no relief. No associated nausea, vomiting, diarrhea, or fevers. Of note, patient has PMHx of gastritis. PMD: Uday Em Time Seen by Provider: 09/23/17 21:50 Chief Complaint (Nursing): Abdominal Pain History Per: Patient History/Exam Limitations: no limitations Onset/Duration Of Symptoms: Days (x few weeks) Current Symptoms Are (Timing): Still Present Past Medical History Reviewed: Historical Data, Nursing Documentation, Vital Signs Vital Signs: Last Vital Signs Temp 97.8 F 09/23/17 21:41 Pulse 85 09/23/17 21:41 Resp 18 09/23/17 21:41 BP 130/69 09/23/17 21:41 Pulse Ox 100 09/23/17 22:00 - Medical History PMH: Anxiety, Gastritis Denies: Chronic Kidney Disease Surgical History: Endoscopy Family History: States: Unknown Family Hx - Social History Hx Alcohol Use: Yes Hx Substance Use: No - Immunization History Hx Tetanus Toxoid Vaccination: No Hx Influenza Vaccination: Yes (07/2017) Hx Pneumococcal Vaccination: No Review Of Systems Except As Marked, All Systems Reviewed And Found Negative. Constitutional: Negative for: Fever, Chills Cardiovascular: Negative for: Chest Pain Respiratory: Negative for: Shortness of Breath Gastrointestinal: Positive for: Abdominal Pain. Negative for: Nausea, Vomiting , Diarrhea Physical Exam - Physical Exam Appears: Non-toxic, No Acute Distress Skin: Normal Color, Warm, Dry Head: Atraumatic, Normacephalic Eye(s): bilateral: Normal Inspection, PERRL, EOMI Nose: Normal Oral Mucosa: Moist Neck: Normal ROM, Supple Chest: Symmetrical Cardiovascular: Rhythm Regular, No Murmur Respiratory: Normal Breath Sounds, No Accessory Muscle Use Gastrointestinal/Abdominal: Soft, Tenderness (Mild epigastric and left upper quadrant tenderness), No Guarding, No Rebound Extremity: Bilateral: Atraumatic, Normal Color And Temperature, Normal ROM Neurological/Psych: Oriented x3, Normal Speech Gait: Steady ED Course And Treatment - Laboratory Results Result Diagrams: 09/23/17 22:12 09/23/17 22:12 O2 Sat by Pulse Oximetry: 100 (RA) Pulse Ox Interpretation: Normal Medical Decision Making Medical Decision Making: Time: 21:54 Initial Plan: --Basic blood work --Lipase --Carafate 1 gm PO --Protonix 40 mg IVP -- 1 tab PO --Urinalysis --Reevaluation Disposition Counseled Patient/Family Regarding: Diagnosis - Disposition Referrals: [facility] at [facility] [Outside] Disposition: HOME/ ROUTINE Disposition Time: 22:41 Condition: IMPROVED Prescriptions: Pantoprazole Sodium [Protonix] 40 mg PO DAILY #20 ect Phenobarb/Hyoscy/Atropine/Scop [ Tablet] 16.2 mg PO Q8 #14 tablet Sucralfate [Carafate] 1 gm PO BID #20 tab Instructions: Gastritis (DC), Ulcer and Gastritis Diet Forms: [employer] (Wallisian) - POA Present On Arrival: None - Clinical Impression Clinical Impression: Abdominal pain, Gastritis/duodenitis - Scribe Statement The provider has reviewed the documentation as recorded by the Scribe (Madina Delgadillo) Provider Attestation: All medical record entries made by the Scribe were at my direction and personally dictated by me. I have reviewed the chart and agree that the record accurately reflects my personal performance of the history, physical exam, medical decision making, and the department course for this patient. I have also personally directed, reviewed, and agree with the discharge instructions and disposition.
[2017-09-23] MEDS ORDERED: Belladonna-Phenobarbital ONE (22:04)
[2017-09-23 22:19] LABS: URINE BACTERIA RARE (<OCC); URINE BILIRUBIN NEGATIVE (NEGATIVE); URINE BLOOD NEGATIVE (NEGATIVE); URINE CLARITY Hazy (Clear); URINE COLOR Yellow (YELLOW); URINE GLUCOSE (UA) NORMAL (Normal); URINE LEUKOCYTE ESTERASE NEG Leu/uL (Negative); URINE PROTEIN NEGATIVE (NEGATIVE)
[2017-09-23 22:20] LABS: BASO # 0.1 K/uL (0.0-0.2); BASO % 0.8 % (0.0-2.0); EOS # 0.1 K/uL (0.0-0.7); HEMOGLOBIN 17.2 g/dL (12.0-18.0); LYMPH % 38.1 % (20.0-40.0); MEAN CELL VOLUME 91.1 fL (80.0-94.0); MEAN CORPUSCULAR HEMOGLOBIN 31.1 pg (27.0-31.0); MEAN CORPUSCULAR HGB CONC 34.2 g/dL (33.0-37.0); MEAN PLATELET VOLUME 7.8 fL (7.2-11.7); MONO # 0.6 K/uL (0.0-0.8); MONO % 7.2 % (0.0-10.0); NEUT # 4.2 K/uL (1.8-7.0); NEUT % 52.9 % (50.0-75.0); NRBC % 0.2 % (0.0-2.0); RBC 5.51 Mil/uL (4.40-5.90); RED CELL DISTRIBUTION WIDTH 13.1 % (11.5-14.5)
[2017-09-23 22:27] LABS: ALB/GLOB RATIO 1.3 (1.0-2.1); ALBUMIN 4.7 g/dL (3.5-5.0); ALT/SGPT 22 U/L (21-72); AST/SGOT 24 U/L (17-59); BLOOD UREA NITROGEN 14 mg/dL (9-20); CALCIUM 9.5 mg/dl (8.6-10.4); GFR AFRICAN-AMERICAN > 60; GFR NON-AFRICAN AMERICAN > 60; LIPASE 203 U/L (23-300)
[2017-09-23 23:02] VITALS: BP 123/84; PULSE 87; RESP 20; TEMP 98.3; O2SAT 99
== END 2017-09-23 23:00 | disposition home or self-care (01) ==
LOC: C.ER 21:26
DX: K29.70 Gastritis, unspecified, without bleeding (principal); K29.80 Duodenitis without bleeding; R10.10 Upper abdominal pain, unspecified
CPT/HCPCS: 80053; 81001; 83690; 85025; 96374; 99284; C9113

== ENCOUNTER 2017-10-22 00:11 | Emergency (ER) | payer MEDICAID ==
[2017-10-22 00:12] VITALS: BMI 24.0
[2017-10-22 00:30] VITALS: BP 122/87; PULSE 88; RESP 16; TEMP 98.2; O2SAT 100
--- NOTE | 2017-10-22 01:10 | C.PDOC ---
History Of Present Illness 32yo male, with history of deviated septum, who has a scheduled surgery on October 30, states he has been doing a nasal lavage 2-3 times daily. Patient states today he noted blood in his left nostril after sinus lavage and reports "increased pressure" in his nose. Patient states he was concerned due to the pressure, prompting his visit. He has no other complaints. Time Seen by Provider: 10/22/17 00:47 Chief Complaint (Nursing): ENT Problem History Per: Patient History/Exam Limitations: None Onset/Duration Of Symptoms: Days Current Symptoms Are (Timing): Still Present Past Medical History Reviewed: Historical Data, Nursing Documentation, Vital Signs Vital Signs: Last Vital Signs Temp 98.2 F 10/22/17 00:23 Pulse 88 10/22/17 00:23 Resp 16 10/22/17 00:23 BP 122/87 10/22/17 00:23 Pulse Ox 100 10/22/17 05:37 - Medical History PMH: Anxiety, Gastritis Denies: Chronic Kidney Disease Surgical History: Endoscopy Family History: States: No Known Family Hx, Unknown Family Hx - Social History Hx Alcohol Use: Yes Hx Substance Use: No - Immunization History Hx Tetanus Toxoid Vaccination: No Hx Influenza Vaccination: Yes (07/2017) Hx Pneumococcal Vaccination: No Review Of Systems Except As Marked, All Systems Reviewed And Found Negative. Constitutional: Negative for: Fever, Chills ENT: Positive for: Nose Discharge, Nose Congestion Physical Exam - Physical Exam Appears: Non-toxic, No Acute Distress Skin: Normal Color, Warm, Dry Head: Atraumatic, Normacephalic Eye(s): bilateral: Normal Inspection, PERRL, EOMI Nose: Normal, No Epistaxis, No Septal Hematoma, Other (enlarged turbinates, right> left) Oral Mucosa: Moist Throat: Normal, No Erythema, No Exudate Neck: Normal ROM, Supple Chest: Symmetrical Cardiovascular: Rhythm Regular Respiratory: Normal Breath Sounds ED Course And Treatment O2 Sat by Pulse Oximetry: 100 (RA) Pulse Ox Interpretation: Normal Progress Note: Patient with well exam, stable for discharge home. Instructed to continue sudafed, and follow up with Dr. Macdonald. Disposition Counseled Patient/Family Regarding: Diagnosis, Need For Followup - Disposition Disposition: HOME/ ROUTINE Disposition Time: 01:07 Condition: STABLE Additional Instructions: Please follow up with ENT Dr Macdonald tomorrow Take meds as directed Return to ER if worse Prescriptions: Pseudoephedrine [Pseudoephedrine HCl] 30 mg PO TID #20 tab Instructions: Chronic Sinusitis Forms: [employer] ([place] Islander) - Clinical Impression Clinical Impression: Nasal sinus congestion - PA / GALLERY DIRECTOR / Resident Statement MD/DO has reviewed & agrees with the documentation as recorded. - Scribe Statement The provider has reviewed the documentation as recorded by the Scribe (Holly Dodd) Provider Attestation: All medical record entries made by the Scribe were at my direction and personally dictated by me. I have reviewed the chart and agree that the record accurately reflects my personal performance of the history, physical exam, medical decision making, and the department course for this patient. I have also personally directed, reviewed, and agree with the discharge instructions and disposition.
== END 2017-10-22 01:25 | disposition home or self-care (01) ==
LOC: C.ER 00:11
DX: R09.81 Nasal congestion (principal); J34.2 Deviated nasal septum

== ENCOUNTER 2018-01-15 07:36 | Day surgery (SDC) | payer MEDICAID ==
[2017-10-22 12:02] VITALS: BMI 21.8
[2018-01-15] MEDS ORDERED: Acetaminophen-Codeine 300/30 mg Tab PO PRN (08:01)
[2018-01-15] MEDS ORDERED: Dextrose 5%/0.45% NS 1,000 ML IV SCH (08:15)
[2018-01-15] MEDS ORDERED: ceFAZolin 1 gm in NS 1 GM/100 ML BAG IVPB ONE (08:36)
[2018-01-15] MEDS ORDERED: Oxymetazoline 0.05% Nasal Spray (30 ml) NS ONE (08:37)
[2018-01-15] MEDS ORDERED: EPINEPHrine 1:1000 Nasal Sol(30mL) ONE (08:37)
[2018-01-15] MEDS ORDERED: Lidocaine/Epinephrine 1% 1:100000 10 ML IJ ONE (08:37)
[2018-01-15] MEDS ORDERED: Lactated Ringer's 1,000 ML IV ONE ×2 (10:05→12:00)
[2018-01-15] MEDS ORDERED: Midazolam 2 MG/2 ML VIAL ONE (10:08)
[2018-01-15] MEDS ORDERED: Propofol 10 mg/ml Inj (20 ML) ONE (10:09)
[2018-01-15] MEDS ORDERED: Succinylcholine Chloride 20 mg/ml Syr (5 ml) IV ONE (10:11)
[2018-01-15] MEDS ORDERED: Rocuronium 10 mg/ml (5 ml) ONE (10:11)
[2018-01-15] MEDS ORDERED: White Petrolatum/Mineral Oil Ophth Oint(3.5 gm) ONE (10:13)
[2018-01-15] MEDS ORDERED: Lactated Ringer's 1,000 ML IV SCH (11:30)
[2018-01-15 13:54] VITALS: RESP 16
[2018-01-15 15:37] VITALS: BP 140/84; PULSE 95; TEMP 97.7; O2SAT 96
--- NOTE | 2018-01-15 22:24 | OP ---
PROCEDURE DATE: 01/15/2018 PREOPERATIVE DIAGNOSES: Deviated septum, large turbinates. POSTOPERATIVE DIAGNOSES: Deviated septum, large turbinates. PROCEDURES: Septoplasty, endoscopic bilateral inferior turbinate reduction. SURGEON: Uriel Macdonald MD. SIGNIFICANT FINDINGS: Large turbinates, deviated septum. DESCRIPTION OF PROCEDURE: The patient was brought into the room, placed in supine position, anesthesia was initiated through an ET tube. The patient was draped in the usual manner. Adrenaline-soaked pledgets were inserted into nasal cavity, remained there for at least five minutes and removed. Septum was injected on both sides with lidocaine with epinephrine. A Gerrard incision was made on the left and mucoperichondrial flap was raised. A vertical incision was made in the cartilage leaving 1.5 cm anterior and superior strut and mucoperichondrial flap was raised on the other side. Deviated portion of the bone and cartilage were removed using chisel and forceps. A quilting suture was used to suture the two flaps together and close the incision. A 0-degree scope was inserted into the nasal cavity. The inferior turbinates were noted to be enlarged and reduced in size using scissors going from inferior to superior, anterior to posterior direction on both sides. Bleeding was controlled using suction cautery. Splints were placed. The patient was taken off anesthesia and taken to recovery room in stable manner. Uriel Macdonald MD
== END 2018-01-15 14:25 | disposition home or self-care (01) ==
LOC: C.SDS 07:36
PROVIDERS: ATTEND Otolaryngology
DX: J34.2 Deviated nasal septum (principal); J34.3 Hypertrophy of nasal turbinates
CPT/HCPCS: 30140; 30520; 88304; J0690; J2250; J2270; J2405; J2704; J3010; J7030; J7040; J7120

== ENCOUNTER 2018-02-02 17:21 | Emergency (ER) | payer MEDICAID ==
[2018-02-02 17:22] VITALS: BMI 21.8
[2018-02-02 17:34] VITALS: BP 120/80; PULSE 96; RESP 16; TEMP 98.4; O2SAT 98
--- NOTE | 2018-02-02 17:52 | C.PDOC ---
History Of Present Illness 32 yo male s/p deviated septum surgery by on 01/15/18 come in for evaluation of intermittent mild frontal headache, nasal congestion, post-nasal drip for 2 weeks, and episode of Right nasal bleed today. Pt reports, " was sitting in car noted some dry blood in my Right nostril". At present time, denies acute epistaxis. Pt admits, completed course of abx after surgery. Otherwise, denies fever, chills, severe headache, dizziness, visual changes, drooling, sore throat, cough, CP, SOB, wheezing, abd. pain, N/V/D, back pain, UTi sx. Ambulate to Ed for evaluation, not in nay apparent distress. Time Seen by Provider: 02/02/18 17:37 Chief Complaint (Nursing): Cough, Cold, Congestion History Per: Patient Past Medical History Reviewed: Historical Data, Nursing Documentation, Vital Signs Vital Signs: Last Vital Signs Temp 98.4 F 02/02/18 17:30 Pulse 96 H 02/02/18 17:30 Resp 16 02/02/18 17:30 BP 120/80 02/02/18 17:30 Pulse Ox 98 02/02/18 18:03 - Medical History PMH: Anxiety (NO MEDICATION), Gastritis Surgical History: Endoscopy Other Surgeries: s/p sinus surgery on 01/15/18 Family History: States: Unknown Family Hx - Social History Hx Alcohol Use: Yes Hx Substance Use: No - Immunization History Hx Tetanus Toxoid Vaccination: No Hx Influenza Vaccination: Yes (07/2017) Hx Pneumococcal Vaccination: No Review Of Systems Except As Marked, All Systems Reviewed And Found Negative. Constitutional: Negative for: Fever, Chills ENT: Positive for: Nose Discharge, Nose Congestion. Negative for: Ear Discharge , Throat Pain Cardiovascular: Negative for: Chest Pain Respiratory: Negative for: Cough, Shortness of Breath Gastrointestinal: Negative for: Nausea, Vomiting, Abdominal Pain, Diarrhea Genitourinary: Negative for: Dysuria, Frequency Musculoskeletal: Negative for: Neck Pain, Back Pain Skin: Negative for: Rash Neurological: Positive for: Headache. Negative for: Weakness, Numbness, Dizziness Physical Exam - Physical Exam Appears: Well, Non-toxic, No Acute Distress Skin: Normal Color, Warm, Dry, No Rash, No Ecchymosis Head: Normacephalic Eye(s): bilateral: PERRL Ear(s): Bilateral: Normal Nose: No Flaring, Discharge (scant clear), No Epistaxis, No Deformity, No Tenderness, No Septal Hematoma, Other (mild R>L paranasal tenderness. no edema, no erythema.) Oral Mucosa: Moist, No Drooling Tongue: Normal Appearing Throat: No Erythema, No Exudate, No Drooling, Other (NO post-nasal drip noted) Neck: Normal ROM, Trachea Midline, Supple Cardiovascular: Rhythm Regular, No Murmur, No JVD Respiratory: No Decreased Breath Sounds, No Accessory Muscle Use, No Stridor, No Wheezing Gastrointestinal/Abdominal: Soft, No Tenderness, No Distention, No Guarding Extremity: Normal ROM, No Pedal Edema, No Swelling Neurological/Psych: Oriented x3, Normal Speech ED Course And Treatment O2 Sat by Pulse Oximetry: 98 Pulse Ox Interpretation: Normal Progress Note: Case discussed with , recommend Rx: Bactrim DS, Steroids with outpt f/u on 02/04/18. On re-eval, pt is afebrile, hemodynamically stable. Non-toxic. Ambulatory in ED with stable gait. PulseOx 98% on RA. ENT: exam c/w mild paranasal sinusitis. NO erythema or edema over sinuses. uvula midline, no edema. No active epistaxis. Neck: Supple, (-) JVD. Lungs: CTA B/L, BS equal B/ L. Abd: benign, (-) guarding, (-) rebound. Neurologically intact. Pt advised on course of ds. Pt ref. to F/U with on 02/04/18 for re-eval. return to ED if any worsening or new changes. Disposition Counseled Patient/Family Regarding: Diagnosis, Need For Followup, Rx Given - Disposition Referrals: Uriel Macdonald MD [Staff Provider] - Disposition: HOME/ ROUTINE Disposition Time: 17:58 Condition: STABLE Additional Instructions: Take medication as prescribed Follow up with on 02/04/18 for further evaluation and treatment return to ED if any worsening or new changes. Prescriptions: Loratadine [Claritin] 10 mg PO DAILY #20 tab Prednisone [Deltasone] 40 mg PO DAILY #10 tablet Sulfamethoxazole/Trimethoprim [Bactrim DS 800 mg-160 mg] 1 tab PO BID #14 tab Instructions: Sinusitis in Adults Forms: [employer] (Spanish) - Clinical Impression Clinical Impression: Sinusitis
[2018-02-02] MEDS ORDERED: Tmp-Smz 800 mg-160 mg DS Tab PO STA (17:55)
[2018-02-02] MEDS ORDERED: Tmp-Smz 800 mg-160 mg DS Tab ONE (18:05)
== END 2018-02-02 18:11 | disposition home or self-care (01) ==
LOC: C.ER 17:21
DX: J32.9 Chronic sinusitis, unspecified (principal)

== ENCOUNTER 2018-02-15 14:35 | Emergency (ER) | payer MEDICAID ==
[2018-02-15 14:35] VITALS: BMI 21.8
[2018-02-15 14:49] VITALS: BP 116/80; PULSE 97; RESP 18; TEMP 98.7; O2SAT 100
[2018-02-15] MEDS ORDERED: Tmp-Smz 800 mg-160 mg DS Tab PO STA (15:18)
[2018-02-15] MEDS ORDERED: Tmp-Smz 800 mg-160 mg DS Tab ONE (15:36)
[2018-02-15] MEDS ORDERED: Lidocaine 2% MPF (5 ml) Inj ONE (15:40)
--- NOTE | 2018-02-15 16:00 | C.PDOC ---
History Of Present Illness 32 year old male presents to the ED for evaluation of swelling and pain to right thumb. Patient reports he was cutting his cuticles four days ago, and his symptoms developed afterward. Patient denies direct trauma/injury to the area. Time Seen by Provider: 02/15/18 15:00 Chief Complaint (Nursing): Finger,Hand,&Wrist History Per: Patient History/Exam Limitations: no limitations Onset/Duration Of Symptoms: Days (4) Current Symptoms Are (Timing): Still Present Quality: "Pain" Additional History Per: Patient Past Medical History Reviewed: Historical Data, Nursing Documentation, Vital Signs Vital Signs: Last Vital Signs Temp 98.7 F 02/15/18 14:47 Pulse 97 H 02/15/18 14:47 Resp 18 02/15/18 14:47 BP 116/80 02/15/18 14:47 Pulse Ox 100 02/15/18 22:44 - Medical History PMH: Anxiety (NO MEDICATION), Gastritis Surgical History: Endoscopy Family History: States: Unknown Family Hx - Social History Hx Alcohol Use: Yes Hx Substance Use: No - Immunization History Hx Tetanus Toxoid Vaccination: No Hx Influenza Vaccination: Yes (07/2017) Hx Pneumococcal Vaccination: No Review Of Systems Skin: Positive for: Other (pain and swelling to right thumb ) Physical Exam - Physical Exam Appears: Non-toxic, No Acute Distress Skin: Normal Color, Warm, Dry Head: Atraumatic, Normacephalic Eye(s): bilateral: Normal Inspection Oral Mucosa: Moist Extremity: Normal ROM, Capillary Refill (less than 2 seconds ), Other (swelling , tenderness and erythema and mild fluctuance to lateral nail margin of right thumb ) Pulses: Left Radial: Normal, Right Radial: Normal Neurological/Psych: Oriented x3, Normal Motor, Normal Sensation Gait: Steady ED Course And Treatment O2 Sat by Pulse Oximetry: 100 (on RA) Pulse Ox Interpretation: Normal - Incision & Drainage Of Abscess Anesthesia: Lidocaine 2% Procedure: Incised W/Scalpel Blade#: (11) Medical Decision Making Medical Decision Making: Progress: Bactrim PO and Keflex PO given. digital block performed by me using Lidocaine 2%. Area incised with blade #11. No pus drained. Patient was instructed to do warm soaks and warm compresses 4-5 times per day. Disposition - Disposition Referrals: Ambika Julian MD [Staff Provider] - Disposition: HOME/ ROUTINE Disposition Time: 15:58 Condition: GOOD Additional Instructions: Follow up with the medical doctor within 1-2 days. Return if worsened. Prescriptions: Cephalexin [Keflex] 500 mg PO BID #19 capsule Sulfamethoxazole/Trimethoprim [Bactrim DS 800 mg-160 mg] 1 tab PO BID #14 tab Instructions: Paronychia Forms: [employer] (Malian) - Clinical Impression Clinical Impression: Paronychia - PA / REHABILITATION PHYSICIAN / Resident Statement MD/DO has reviewed & agrees with the documentation as recorded. - Scribe Statement The provider has reviewed the documentation as recorded by the Scribe (Winter Johnson) All medical record entries made by the Scribe were at my direction and personally dictated by me. I have reviewed the chart and agree that the record accurately reflects my personal performance of the history, physical exam, medical decision making, and the department course for this patient. I have also personally directed, reviewed, and agree with the discharge instructions and disposition.
== END 2018-02-15 16:10 | disposition home or self-care (01) ==
LOC: C.ER 14:35
DX: L03.011 Cellulitis of right finger (principal)

== ENCOUNTER 2018-02-17 14:04 | Emergency (ER) | payer MEDICAID ==
[2018-02-17 14:04] VITALS: BMI 21.8
[2018-02-17 14:15] VITALS: BP 120/79; PULSE 83; RESP 16; TEMP 98.3; O2SAT 98
--- NOTE | 2018-02-17 14:49 | C.PDOC ---
History Of Present Illness 32 y/o male presents to ED for right thumb wound check. Pt notes that last week he was cutting his cuticles and his finger got swollen. Patient was seen here in ER 2 day ago and I&D was performed with no drainage and patient was discharged with antibiotic and soak instructions. Denies fever, increased swelling, drainage or any other physical complaints. Time Seen by Provider: 02/17/18 14:15 Chief Complaint (Nursing): Abnormal Skin Integrity History Per: Patient History/Exam Limitations: no limitations Onset/Duration Of Symptoms: Days Current Symptoms Are (Timing): Still Present Location Of Injury: Right: Hand (Thumb ) Quality Of Symptoms: Swollen Recent travel outside of the [place]: No Past Medical History Reviewed: Historical Data, Nursing Documentation, Vital Signs Vital Signs: Last Vital Signs Temp 98.3 F 02/17/18 14:13 Pulse 83 02/17/18 14:13 Resp 16 02/17/18 14:13 BP 120/79 02/17/18 14:13 Pulse Ox 98 02/17/18 18:15 - Medical History PMH: Anxiety (NO MEDICATION), Gastritis Surgical History: Endoscopy Family History: States: Unknown Family Hx - Social History Hx Alcohol Use: Yes Hx Substance Use: No - Immunization History Hx Tetanus Toxoid Vaccination: No Hx Influenza Vaccination: Yes (07/2017) Hx Pneumococcal Vaccination: No Review Of Systems Constitutional: Negative for: Fever, Chills Gastrointestinal: Negative for: Nausea, Vomiting Skin: Positive for: Other (Right thumb swelling ). Negative for: Rash Neurological: Negative for: Weakness, Numbness Physical Exam - Physical Exam Appears: Well, Non-toxic, No Acute Distress Skin: Warm, Dry, No Rash Head: Atraumatic, Normacephalic Eye(s): bilateral: Normal Inspection, EOMI Nose: Normal Oral Mucosa: Moist Neck: Normal ROM, Supple Chest: Symmetrical Respiratory: No Accessory Muscle Use Extremity: Normal ROM, No Tenderness, Capillary Refill (<2 sec), No Deformity, Swelling (To lateral aspect of thumb ; mild erythema; no fluctuance or streaking ) Extremity: Bilateral: Atraumatic, Normal ROM Pulses: Left Radial: Normal, Right Radial: Normal Neurological/Psych: Oriented x3, Normal Speech, Normal Sensation Gait: Steady ED Course And Treatment O2 Sat by Pulse Oximetry: 98 (RA) Pulse Ox Interpretation: Normal Progress Note: No fluctuance, no evidence of repeat I&D needed. Instructed to continue antibiotics and soaks. Return if symptoms persist or acutely worsen. Disposition - Disposition Disposition: HOME/ ROUTINE Disposition Time: 14:48 Condition: STABLE Additional Instructions: Continue antibiotics and warm soaks. Wound check with your doctor in 3 days for re-evaluation. Instructions: Cellulitis (Skin Infection), Adult (DC) Forms: [employer] (German) - Clinical Impression Clinical Impression: Cellulitis - PA / HOSPICE PLAN ADMINISTRATOR / Resident Statement MD/DO has reviewed & agrees with the documentation as recorded. - Scribe Statement The provider has reviewed the documentation as recorded by the Scribmariam Meadows All medical record entries made by the Chinmay were at my direction and personally dictated by me. I have reviewed the chart and agree that the record accurately reflects my personal performance of the history, physical exam, medical decision making, and the department course for this patient. I have also personally directed, reviewed, and agree with the discharge instructions and disposition.
== END 2018-02-17 14:55 | disposition home or self-care (01) ==
LOC: C.ER 14:04
DX: L03.011 Cellulitis of right finger (principal)

== ENCOUNTER 2018-04-04 09:13 | Emergency (ER) | payer MEDICAID ==
[2018-04-04 09:28] VITALS: TEMP 99.3; O2SAT 98; BMI 23.2
[2018-04-04] MEDS ORDERED: Albuterol 0.083% Inhal Sol (2.5 mg/3 mL) UD IH STA (09:45)
--- NOTE | 2018-04-04 09:48 | C.PDOC ---
History Of Present Illness 32 yo male w/PMHx of "seasonal asthma". smoker come in for evaluation of cold sx for past 3 days associated with nasal congestion, runny noise, dry cough with intermittent chest tightness. Otherwise, pt denies high fever, chills, severe headache, drooling, dysphasia, dyspnea, SOB, abd. pain, N/V/D, back pain, UTI sx, deneis recent travel or known sick contact. AT the time of evaluation, pt is comfortable, not in any apparent distress. Time Seen by Provider: 04/04/18 09:28 Chief Complaint (Nursing): Flu-like Symptoms History Per: Patient Past Medical History Reviewed: Historical Data, Nursing Documentation, Vital Signs Vital Signs: Last Vital Signs Temp 99.3 F 04/04/18 09:28 Pulse 88 04/04/18 09:28 Resp 17 04/04/18 09:28 BP 125/82 04/04/18 09:28 Pulse Ox 98 04/04/18 09:28 - Medical History PMH: Anxiety (NO MEDICATION), Asthma, Gastritis Surgical History: Endoscopy Family History: States: Unknown Family Hx - Social History Hx Tobacco Use: Yes Hx Alcohol Use: Yes Hx Substance Use: No - Immunization History Hx Tetanus Toxoid Vaccination: No Hx Influenza Vaccination: Yes (07/2017) Hx Pneumococcal Vaccination: No Review Of Systems Except As Marked, All Systems Reviewed And Found Negative. Constitutional: Negative for: Fever, Chills ENT: Positive for: Nose Discharge, Nose Congestion, Throat Pain. Negative for: Ear Discharge, Throat Swelling Cardiovascular: Negative for: Chest Pain Respiratory: Positive for: Cough. Negative for: Shortness of Breath, Sputum, Wheezing Gastrointestinal: Negative for: Nausea, Vomiting, Abdominal Pain, Diarrhea Genitourinary: Negative for: Dysuria Musculoskeletal: Negative for: Neck Pain Skin: Negative for: Rash Neurological: Negative for: Altered Mental Status, Dizziness Physical Exam - Physical Exam Appears: Well, Non-toxic, No Acute Distress Skin: Normal Color, Warm, Dry, No Rash Head: Normacephalic Eye(s): bilateral: PERRL Ear(s): Bilateral: Normal Nose: No Flaring, Discharge (B/L nasal congestion with scant clear rhinorhea) Oral Mucosa: Moist, No Drooling Throat: Erythema (mild B/L), No Drooling Neck: Trachea Midline, Supple Cardiovascular: Rhythm Regular Respiratory: No Decreased Breath Sounds, No Accessory Muscle Use, No Stridor, Wheezing (scattered Left base expiratory wheezing) Gastrointestinal/Abdominal: Soft, No Tenderness, No Distention, No Guarding Back: No CVA Tenderness Extremity: Normal ROM, No Deformity, No Swelling Neurological/Psych: Oriented x3, Normal Speech ED Course And Treatment O2 Sat by Pulse Oximetry: 98 Pulse Ox Interpretation: Normal - Radiology CXR: Interpreted by Me, Viewed By Me CXR Interpretation: Yes: No Acute Disease Progress Note: On re-eval, pt is afebrile, hemodynamicaly stable. non-toxic. PulsEOx 98% RA. ENT: No acute findings. neck: SUpple, (-) meningeal sign. Lungs; CTA B/L, BS equal B/L. CVS: (+)S1S2, reg. Abd: benign. Neurologicaly intake. CXR- no acute findings. Pt has clinical findings c/w acute bronchitis/asthma exacerbation. Pt advised. ref. to F/u with PMD in 2-3 dyas for re-eval. return to ED if any worsening or new changes. Disposition Counseled Patient/Family Regarding: Studies Performed, Diagnosis, Need For Followup, Rx Given - Disposition Referrals: Uday Em MD [Medical Doctor] - Disposition: HOME/ ROUTINE Disposition Time: 10:00 Condition: STABLE Additional Instructions: Encourage fluids Take medication as prescribed Follow up with PMD in 2-3 days for re-evaluation. return to ED if any worsening or new changes. Prescriptions: Albuterol HFA [Ventolin HFA 90 mcg/actuation (8 g)] 1 puff IH Q6 #1 inhaler Azithromycin [Zithromax] 250 mg PO DAILY #4 tab Prednisone [Deltasone] 40 mg PO DAILY #6 tablet Instructions: Acute Bronchitis, Adult (DC) Forms: [employer] (Korean), Work Excuse - Clinical Impression Clinical Impression: Acute bronchitis, Asthma
[2018-04-04] MEDS ORDERED: Albuterol 0.083% Inhal Sol (2.5 mg/3 mL) UD ONE (09:55)
[2018-04-04 10:38] VITALS: BP 112/69; PULSE 84; RESP 16
--- NOTE | 2018-04-04 12:33 | RAD ---
Date of service: 04/04/2018 HISTORY: Cough COMPARISON: 10/22/2017 TECHNIQUE: Chest PA and lateral FINDINGS: LUNGS: No active pulmonary disease. PLEURA: No significant pleural effusion identified. No pneumothorax apparent. CARDIOVASCULAR: Normal. OSSEOUS STRUCTURES: No significant abnormalities. VISUALIZED UPPER ABDOMEN: Normal. OTHER FINDINGS: None. IMPRESSION: No active disease. No significant interval change compared to the prior examination(s).
== END 2018-04-04 10:38 | disposition home or self-care (01) ==
LOC: C.ER 09:13
DX: J45.909 Unspecified asthma, uncomplicated (principal); Z87.891 Personal history of nicotine dependence

== ENCOUNTER 2018-06-27 21:47 | Emergency (ER) | payer MEDICAID ==
[2018-06-27 21:47] VITALS: BMI 23.2
[2018-06-27 22:01] VITALS: O2SAT 100
--- NOTE | 2018-06-27 22:26 | C.PDOC ---
History Of Present Illness Patient presents with burning sensation from his stomach into his chest, No f/c/n/v. Tolerating po.10/09 discomfort Time Seen by Provider: 06/27/18 22:26 Chief Complaint (Nursing): Chest Pain History Per: Patient History/Exam Limitations: no limitations Onset/Duration Of Symptoms: Days Current Symptoms Are (Timing): Still Present Context: Food Severity: Moderate Pain Scale Rating Of: 4 Quality: Burning Associated Symptoms: denies: Nausea, Dyspnea, Diaphoresis Modifying Factors: None Alleviating Factors: None Recent travel outside of the [place]: No Additional History Per: Patient Past Medical History Reviewed: Historical Data, Nursing Documentation, Vital Signs Vital Signs: Last Vital Signs Temp 97.5 F L 06/27/18 21:58 Pulse 82 06/27/18 21:58 Resp 14 06/27/18 21:58 BP 126/80 06/27/18 21:58 Pulse Ox 100 06/27/18 21:58 - Medical History PMH: Anxiety (NO MEDICATION), Asthma, Gastritis Surgical History: Endoscopy Family History: States: No Known Family Hx - Social History Hx Tobacco Use: Yes Hx Alcohol Use: Yes Hx Substance Use: No - Immunization History Hx Tetanus Toxoid Vaccination: No Hx Influenza Vaccination: Yes (07/2017) Hx Pneumococcal Vaccination: No Review Of Systems Constitutional: Negative for: Fever, Chills ENT: Negative for: Throat Pain Cardiovascular: Positive for: Chest Pain (burning) Respiratory: Negative for: Shortness of Breath Gastrointestinal: Positive for: Abdominal Pain Genitourinary: Negative for: Dysuria Musculoskeletal: Negative for: Back Pain Skin: Negative for: Rash Neurological: Negative for: Weakness Psych: Negative for: Anxiety Physical Exam - Physical Exam Appears: Non-toxic, No Acute Distress Skin: Warm, Dry Eye(s): bilateral: Normal Inspection Oral Mucosa: Moist Neck: Supple Chest: Symmetrical Cardiovascular: Rhythm Regular Respiratory: No Rales, No Rhonchi, No Wheezing Gastrointestinal/Abdominal: Soft, No Tenderness, No Distention Back: Normal Inspection Extremity: Normal ROM Extremity: Bilateral: Atraumatic Pulses: Left Dorsalis Pedis: Normal, Right Dorsalis Pedis: Normal Neurological/Psych: Oriented x3, Normal Speech, Normal Cognition Gait: Steady ED Course And Treatment - Laboratory Results Result Diagrams: 06/27/18 22:44 06/27/18 22:44 ECG: Interpreted By Me, Viewed By Me ECG Rhythm: Sinus Rhythm (69), Nonspecific Changes O2 Sat by Pulse Oximetry: 100 Pulse Ox Interpretation: Normal - Radiology CXR: Interpreted by Me, Viewed By Me CXR Interpretation: No: Infiltrates, Fracture, Pnemothorax Progress Note: patient feels fine, no more burning and wants to go home. Encouraged to return if symptoms recur Disposition Counseled Patient/Family Regarding: Studies Performed, Diagnosis, Need For Followup, Rx Given, Smoking Cessation - Disposition Referrals: Augustus Em MD [Staff Provider] - Disposition: HOME/ ROUTINE Disposition Time: 22:26 Condition: FAIR Additional Instructions: Please return if symptoms recur Prescriptions: Pantoprazole Sodium [Protonix] 40 mg PO DAILY #15 ect Instructions: Acid Reflux (Gastroesophageal Reflux Disease) in Adults Forms: [employer] (Azeri) - Clinical Impression Clinical Impression: GERD (gastroesophageal reflux disease)
[2018-06-27] MEDS ORDERED: Aspirin 325 mg EC Tablets PO ONE (22:41)
[2018-06-27] MEDS: Aspirin 325 mg EC Tablets PO STA (22:44)
[2018-06-27 22:48] LABS: BASO # 0.1 K/uL (0.0-0.2); BASO % 0.9 % (0.0-2.0); EOS % 0.4 % (0.0-4.0); HEMOGLOBIN 14.3 g/dL (12.0-18.0); LYMPH # 2.7 K/uL (1.0-4.3); MEAN CELL VOLUME 93.6 fL (80.0-94.0); MEAN CORPUSCULAR HEMOGLOBIN 32.2 pg (27.0-31.0); MEAN CORPUSCULAR HGB CONC 34.4 g/dL (33.0-37.0); MONO # 0.6 K/uL (0.0-0.8); MONO % 7.1 % (0.0-10.0); NEUT # 5.2 K/uL (1.8-7.0); NEUT % 60.6 % (50.0-75.0); NRBC % 0.1 % (0.0-2.0); RBC 4.46 Mil/uL (4.40-5.90); RED CELL DISTRIBUTION WIDTH 13.5 % (11.5-14.5); WHITE BLOOD COUNT 8.6 K/uL (4.8-10.8)
[2018-06-27 22:58] LABS: INR 1.1; PARTIAL THROMBOPLASTIN TIME 32 SECONDS (21-34); PROTHROMBIN TIME 12.2 SECONDS (9.7-12.2)
[2018-06-27 23:00] LABS: ALB/GLOB RATIO 1.6 (1.0-2.1); ALBUMIN 4.7 g/dL (3.5-5.0); ALT/SGPT 20 U/L (21-72); AST/SGOT 27 U/L (17-59); BLOOD UREA NITROGEN 14 mg/dL (9-20); CALCIUM 9.3 mg/dl (8.6-10.4); GFR NON-AFRICAN AMERICAN > 60
[2018-06-27 23:13] LABS: B-TYPE NATRIURETIC PEPTIDE < 11.1 pg/mL (0-450)
[2018-06-27 23:26] LABS: D DIMER < 200 ng/mlDDU (0-243)
[2018-06-27 23:45] VITALS: BP 131/60; PULSE 72; RESP 16; TEMP 98.3
--- NOTE | 2018-06-28 09:46 | RAD ---
Date of service: 06/27/2018 PROCEDURE: CHEST RADIOGRAPH, 1 VIEW HISTORY: chest pain COMPARISON: 04/04/2018. FINDINGS: LUNGS: There are low lung volumes. The lungs are clear. PLEURA: No pneumothorax or pleural effusion. CARDIOVASCULAR: The heart is normal in size. No aortic atherosclerotic calcifications present. OSSEOUS STRUCTURES: Within normal limits for the patient's age. VISUALIZED UPPER ABDOMEN: Normal. OTHER FINDINGS: None. IMPRESSION: No active pulmonary disease. Low lung volumes may be related to poor inspiratory effort.
--- NOTE | 2018-06-28 18:26 | CARD ---
APPROVED REPORT Date of service: 06/27/2018 EKG Measurement Heart [id number] <Conclusion> Normal sinus rhythm with sinus arrhythmia Early repolarization Normal ECG
== END 2018-06-27 23:45 | disposition home or self-care (01) ==
LOC: C.ER 21:47
DX: K21.9 Gastro-esophageal reflux disease without esophagitis (principal); Z72.0 Tobacco use
CPT/HCPCS: 71045; 80053; 83880; 84484; 85025; 85378; 85610; 85730; 93005; 96374; 99284; C9113

== ENCOUNTER 2018-08-01 19:03 | Emergency (ER) | payer MEDICAID ==
[2018-08-01 19:03] VITALS: BMI 23.2
[2018-08-01 19:10] VITALS: BP 134/83; PULSE 91; RESP 20; TEMP 98.1; O2SAT 100
[2018-08-01] MEDS ORDERED: Alum-Mag Hydrox-Simethicone Susp (30 mL) PO STA (19:35)
[2018-08-01 20:05] LABS: BASO % 0.6 % (0.0-2.0); EOS % 0.5 % (0.0-4.0); HEMOGLOBIN 14.6 g/dL (12.0-18.0); LYMPH # 1.8 K/uL (1.0-4.3); LYMPH % 27.2 % (20.0-40.0); MEAN CELL VOLUME 92.9 fL (80.0-94.0); MEAN CORPUSCULAR HEMOGLOBIN 31.4 pg (27.0-31.0); MEAN CORPUSCULAR HGB CONC 33.8 g/dL (33.0-37.0); MEAN PLATELET VOLUME 7.6 fL (7.2-11.7); MONO # 0.6 K/uL (0.0-0.8); MONO % 8.6 % (0.0-10.0); NEUT # 4.3 K/uL (1.8-7.0); NEUT % 63.1 % (50.0-75.0); RBC 4.66 Mil/uL (4.40-5.90); RED CELL DISTRIBUTION WIDTH 13.1 % (11.5-14.5); WHITE BLOOD COUNT 6.7 K/uL (4.8-10.8)
--- NOTE | 2018-08-01 20:12 | C.PDOC ---
History Of Present Illness 33yo male, otherwise well, comes to ER reporting a burning sensation in his esophagus as well as epigastric region. He has been taking medications, but with no improvement. He denies any chest pain, shortness of breath, nausea or vom iting. Patient does have a scheduled GI appointment on 08/05 but came to ER today for evaluation due to persistent discomfort. Time Seen by Provider: 08/01/18 19:25 Chief Complaint (Nursing): ENT Problem History Per: Patient History/Exam Limitations: no limitations Current Symptoms Are (Timing): Still Present Additional History Per: Patient Past Medical History Reviewed: Historical Data, Nursing Documentation, Vital Signs Vital Signs: Last Vital Signs Temp 98.1 F 08/01/18 19:08 Pulse 91 H 08/01/18 19:08 Resp 20 08/01/18 19:08 BP 134/83 08/01/18 19:08 Pulse Ox 100 08/01/18 19:08 - Medical History PMH: Anxiety (NO MEDICATION), Asthma, Gastritis Surgical History: Endoscopy Family History: States: No Known Family Hx - Social History Hx Tobacco Use: Yes Hx Alcohol Use: Yes Hx Substance Use: No - Immunization History Hx Tetanus Toxoid Vaccination: No Hx Influenza Vaccination: Yes (07/2017) Hx Pneumococcal Vaccination: No Review Of Systems Except As Marked, All Systems Reviewed And Found Negative. Constitutional: Negative for: Fever, Chills Cardiovascular: Negative for: Chest Pain Respiratory: Negative for: Shortness of Breath Gastrointestinal: Positive for: Other (epigastric and esophageal burning sensation). Negative for: Nausea, Vomiting Physical Exam - Physical Exam Appears: Non-toxic, No Acute Distress Skin: Normal Color, Warm, Dry Head: Atraumatic, Normacephalic Eye(s): bilateral: Normal Inspection Neck: Normal ROM, Supple Chest: Symmetrical Cardiovascular: Rhythm Regular Respiratory: Normal Breath Sounds Gastrointestinal/Abdominal: Normal Exam, Soft, No Tenderness, No Guarding, No Rebound Back: Normal Inspection, No CVA Tenderness Extremity: Normal ROM, No Pedal Edema, No Deformity Neurological/Psych: Oriented x3 ED Course And Treatment - Laboratory Results Result Diagrams: 08/01/18 20:02 08/01/18 20:02 O2 Sat by Pulse Oximetry: 100 (RA) Pulse Ox Interpretation: Normal Medical Decision Making Medical Decision Makinyo male with burning sensation in abdomen and esophagus; likely acid reflux Plan: -- Labs -- CXR -- Maalox 30ml PO -- Zofran 4mg IV -- Protonix 40mg IV follow up with gi doctor within 2 days. call to make an appointment take medications as prescribed. Return to ER if symptoms worsens or progress Disposition - Disposition Disposition: HOME/ ROUTINE Disposition Time: 20:32 Condition: STABLE Additional Instructions: follow up with your doctor within 2 days call to make an appointment take medications as prescribed return to ER if symptoms worsens or progress Prescriptions: Pantoprazole Sodium [Protonix] 40 mg PO DAILY #20 ect Instructions: Dyspepsia, Acute Abdomen (Belly Pain) Forms: [employer] (Gibraltarian), General Discharge Instructions - Clinical Impression Clinical Impression: Abdominal pain, Dyspepsia - Roseyibe Statement The provider has reviewed the documentation as recorded by the Chinmay Dodd Provider Attestation: All medical record entries made by the Chinmay were at my direction and personally dictated by me. I have reviewed the chart and agree that the record accurately reflects my personal performance of the history, physical exam, medical decision making, and the department course for this patient. I have also personally directed, reviewed, and agree with the discharge instructions and disposition.
[2018-08-01 20:17] LABS: ALB/GLOB RATIO 1.5 (1.0-2.1); ALBUMIN 4.9 g/dL (3.5-5.0); ALT/SGPT 15 U/L (21-72); AST/SGOT 27 U/L (17-59); BLOOD UREA NITROGEN 16 mg/dL (9-20); CALCIUM 9.1 mg/dl (8.6-10.4); GFR NON-AFRICAN AMERICAN > 60; LIPASE 170 U/L (23-300)
--- NOTE | 2018-08-02 10:27 | RAD ---
HISTORY: abd pain COMPARISON: Chest x-ray performed 06/27/18 TECHNIQUE: Chest PA and lateral FINDINGS: LUNGS: Mild patchy atelectasis or infiltrate at the right lung base. Please note that chest x-ray has limited sensitivity for the detection of pulmonary masses. PLEURA: No significant pleural effusion identified. No definite pneumothorax . CARDIOVASCULAR: Heart size appears within normal limits. No atherosclerotic calcification present. OSSEOUS STRUCTURES: No acute osseous abnormality identified. VISUALIZED UPPER ABDOMEN: Unremarkable. OTHER FINDINGS: None. IMPRESSION: Mild patchy atelectasis or infiltrate at the right lung base. Correlate clinically. Study marked for PA review.
== END 2018-08-01 20:48 | disposition home or self-care (01) ==
LOC: C.ER 19:03
DX: R10.13 Epigastric pain (principal); Z72.0 Tobacco use
CPT/HCPCS: 71046; 80053; 83690; 85025; 96374; 96375; 99283; C9113; J2405

== ENCOUNTER 2018-09-20 20:50 | Emergency (ER) | payer MEDICAID ==
[2018-09-20 20:51] VITALS: BMI 23.2
[2018-09-20 21:10] VITALS: BP 127/71; PULSE 78; RESP 20; TEMP 98.7; O2SAT 99
--- NOTE | 2018-09-20 22:14 | C.PDOC ---
History Of Present Illness 33 year old male presents to the emergency department with a history of acid reflux. Patient has been evaluated in the ED multiple times for the same symptoms, where he has been given Protonix which he took for the last couple of days but states doesn't provide relief of symptoms. Patient states that his PMD referred him to a GI doctor who recommended Protonix. Patient's PMD recommended Zantac, and told him to stop taking Protonix, upon which patient began feeling acid reflux. Patient states that his pain is worse after eating, and in the mornings upon waking up. Patient states he feels as if food takes longer to travel down into his stomach, and feels as if it's getting "stuck". Patient had an endoscopy a few months ago which was negative for ulcers. Time Seen by Provider: 09/20/18 21:35 Chief Complaint (Nursing): ENT Problem History Per: Patient History/Exam Limitations: None Onset/Duration Of Symptoms: Days Current Symptoms Are (Timing): Still Present Symptoms Have Been: Continuous Past Medical History Reviewed: Historical Data, Nursing Documentation, Vital Signs Vital Signs: Last Vital Signs Temp 98.7 F 09/20/18 21:02 Pulse 78 09/20/18 21:02 Resp 20 09/20/18 21:02 BP 127/71 09/20/18 21:02 Pulse Ox 99 09/20/18 21:02 - Medical History PMH: Anxiety (NO MEDICATION), Asthma, Gastritis Surgical History: Endoscopy Family History: States: No Known Family Hx - Social History Hx Tobacco Use: Yes Hx Alcohol Use: No Hx Substance Use: No - Immunization History Hx Tetanus Toxoid Vaccination: No Hx Influenza Vaccination: Yes (07/2017) Hx Pneumococcal Vaccination: No Review Of Systems Constitutional: Negative for: Fever, Chills, Weakness Eyes: Negative for: Redness, Other (scleral icterus) ENT: Negative for: Mouth Swelling Cardiovascular: Negative for: Chest Pain Respiratory: Negative for: Cough, Shortness of Breath Gastrointestinal: Positive for: Abdominal Pain. Negative for: Nausea, Vomiting, Diarrhea Genitourinary: Negative for: Dysuria, Hematuria Musculoskeletal: Negative for: Back Pain Neurological: Negative for: Weakness, Numbness, Dizziness Physical Exam - Physical Exam Additional Physical Exam Comments: General- Well, non-toxic, NAD Skin- normal, warm, no rash Head: Normocephalic, Atraumatic Eyes: Normal Inspection (no scleral icterus), PERRL, EOMI Ears: Normal (no drainage) Nose- normal Throat: Normal (no swelling or injection), No Exudate, Other (Airway patent) Mucosa moist Neck- supple, normal ROM Chest- Symmetrical Resp- No accessory muscle use, other (Normal inspiratory effort) Abd- Soft, Non-distended Back- Ambulating with steady upright gait Ext- Atraumatic, Normal ROM Radial pulses 2+ Neuro- Oriented x3, Cranial nerves grossly intact ED Course And Treatment O2 Sat by Pulse Oximetry: 99 (RA) Pulse Ox Interpretation: Normal Medical Decision Making Medical Decision Making: Told patient that his presentation is indicative of esophagitis and associated acid reflux. Patient was advised to continue taking Protonix for one month and taking Maalox after eating. Patient advised that he needs to f/u with his PMD, stop taking Zantac, and stick with the Protonix until he finds relief of symptoms. Disposition Counseled Patient/Family Regarding: Diagnosis, Need For Followup, Rx Given - Disposition Disposition: HOME/ ROUTINE Disposition Time: 21:59 Condition: STABLE Prescriptions: Mag Hydrox/Aluminum Hyd/Simeth [Maalox Advanced 355 ml] 30 ml PO TID #355 ml Pantoprazole [Protonix] 40 mg PO DAILY #30 tab Instructions: Acid Reflux (Gastroesophageal Reflux Disease), Adult (DC) Forms: [facility] (Finnish) - Clinical Impression Clinical Impression: Esophagitis - PA / DITCH INSPECTOR / Resident Statement MD/DO has reviewed & agrees with the documentation as recorded. - Scribe Statement The provider has reviewed the documentation as recorded by the Scribe (Porter Willett) All medical record entries made by the Scribe were at my direction and personally dictated by me. I have reviewed the chart and agree that the record accurately reflects my personal performance of the history, physical exam, me dical decision making, and the department course for this patient. I have also personally directed, reviewed, and agree with the discharge instructions and disposition.
== END 2018-09-20 22:21 | disposition home or self-care (01) ==
LOC: C.ER 20:50
DX: K20.9 Esophagitis, unspecified (principal)

== ENCOUNTER 2018-10-09 10:38 | Outpatient (CLI) | payer MEDICAID | END 2018-10-09 10:39 | disposition home or self-care (01) | LOC: C.RADH 10:38 | DX: R13.10 Dysphagia, unspecified (principal) ==

== ENCOUNTER 2018-10-20 20:30 | Emergency (ER) | payer MEDICAID | END 2018-10-20 21:19 | disposition home or self-care (01) | LOC: C.ER 20:30 ==

== ENCOUNTER 2018-11-18 17:13 | Emergency (ER) | payer MEDICAID ==
[2018-11-18 17:13] VITALS: BMI 23.2
[2018-11-18 17:34] VITALS: BP 111/75; PULSE 84; RESP 16; TEMP 98.8; O2SAT 100
--- NOTE | 2018-11-18 17:54 | C.PDOC ---
History Of Present Illness 33 year old male presents to ED with nasal congestion and left-sided neck and shoulder pain x 10 days. Patient reports he has been occasionally coughing clear sputum. Patient also reports chills a couple days ago. Patient denies fevers, headache, ear pain, sore throat, shortness of breath, NVD. Time Seen by Provider: 11/18/18 17:36 Chief Complaint (Nursing): Back Pain History Per: Patient History/Exam Limitations: no limitations Onset/Duration Of Symptoms: Days Current Symptoms Are (Timing): Still Present Past Medical History Vital Signs: Last Vital Signs Temp 98.8 F 11/18/18 17:33 Pulse 84 11/18/18 17:33 Resp 16 11/18/18 17:33 BP 111/75 11/18/18 17:33 Pulse Ox 100 11/18/18 17:33 Primary Care Provider: Uday Em - Medical History PMH: Anxiety (NO MEDICATION), Asthma, Gastritis Surgical History: Endoscopy Family History: States: Unknown Family Hx - Social History Hx Tobacco Use: Yes Hx Alcohol Use: Yes Hx Substance Use: No - Immunization History Hx Tetanus Toxoid Vaccination: No Hx Influenza Vaccination: Yes (07/2017) Hx Pneumococcal Vaccination: No Review Of Systems Except As Marked, All Systems Reviewed And Found Negative. Constitutional: Positive for: Chills. Negative for: Fever ENT: Positive for: Nose Discharge, Nose Congestion. Negative for: Ear Pain, Throat Pain Cardiovascular: Negative for: Chest Pain Respiratory: Positive for: Cough. Negative for: Shortness of Breath Gastrointestinal: Negative for: Nausea, Abdominal Pain Genitourinary: Negative for: Dysuria Physical Exam - Physical Exam Appears: Non-toxic, No Acute Distress Skin: Warm, Dry Head: Atraumatic, Normacephalic Eye(s): bilateral: Normal Inspection Ear(s): Bilateral: Normal Nose: No Discharge Oral Mucosa: Moist Throat: Normal, No Erythema, No Exudate Neck: Normal ROM (able to put chin to chest without discomfort), Supple Lymphatic: No Adenopathy Chest: Symmetrical Cardiovascular: Rhythm Regular Respiratory: Normal Breath Sounds, No Rales, No Rhonchi, No Wheezing Extremity: Normal ROM, Tenderness (to palpation of superior aspect of left shoulder to left side of neck) Neurological/Psych: Oriented x3, Normal Speech, Normal Motor, Normal Sensation Gait: Steady ED Course And Treatment O2 Sat by Pulse Oximetry: 100 Medical Decision Making Medical Decision Making: Benign exam, no neck stiffness, afebrile. Nasal congestion likely either viral or allergy in etiology, recommend nasal spray. Motrin for pain. 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
== END 2018-11-18 18:17 | disposition home or self-care (01) ==
LOC: C.ER 17:13
DX: J06.9 Acute upper respiratory infection, unspecified (principal)